=== PATIENT | female | born 1950 | race Caucasian/White ===

== ENCOUNTER 2019-09-13 21:26 | Inpatient (IN) | payer OTHER, BC ==
[~2019-09-13] VITALS: Ht 154.9 cm; Wt 61.2 kg
[~2019-09-13 21:26] MED LIST: ASPIR-LOW81 MG PO; ATENOLOL 25 MG25 M1; ATORVASTATIN CA40 MG PO; AUGMENTIN 875875 MG PO; COZAAR 50 MG TA50 MG PO; EFFIENT10 MG PO; FOLBEE AR TABL1 EACH PO; METHOTREXATE 22.5 M1 PO; PROAIR HFA8.5 GM INH; REMICADE 1100 MG/VIA IV; TOPROL XL25 MG PO; ZOCOR40 MG PO
[2019-09-13 23:00] VITALS: BP 124/556; BP 124/56
[2019-09-14] MEDS ORDERED: SYMBICORT160 MCG/4. INH (01:14)
[2019-09-14] MEDS ORDERED: CELEXA20 MG PO (01:15)
[2019-09-14] MEDS ORDERED: PRAVASTATIN SOD80 MG PO (01:17)
[2019-09-14] MEDS ORDERED: FOLBIC TABLET1 TAB PO (01:18)
[2019-09-14] MEDS ORDERED: FOLBEE TABLET1 EACH PO (01:21)
[2019-09-14] MEDS ORDERED: RESTORIL30 MG PO (01:23)
[2019-09-14] MEDS ORDERED: SINGULAIR 10 MG10 MG PO (01:23)
[2019-09-14] MEDS ORDERED: NORCO 5-325 TA1 EAC1 PO (01:25)
[2019-09-14] MEDS ORDERED: FLONASE 0.05%50 MCG NASAL (01:27)
[2019-09-14] MEDS ORDERED: CLARITIN10 M3 PO (01:28)
[2019-09-14 05:35] VITALS: BP 137/67
[2019-09-14 06:06] LABS: HEMATOCRIT 36.3 % (37.0-47.0); HEMOGLOBIN 12.2 gm/dL (12.0-15.0); MCH 33.8 pg (26.0-34.0); MCHC 33.7 g/dL (28.0-37.0); MCV 100.5 fL (80.0-100.0); RBC 3.62 mil/uL (4.20-5.00); RDW 14.3 % (10.5-14.5)
[2019-09-14 06:27] LABS: CALCIUM 8.8 mg/dL (8.5-10.1); CREATININE 0.9 mg/dL (0.6-1.0); MAGNESIUM 1.8 mg/dL (1.8-2.4); TROPONIN-I 0.1 ng/mL (<0.06)
[2019-09-14 06:44] LABS: POTASSIUM 2.8 mmol/L (3.5-5.1)
--- NOTE | 2019-09-14 08:55 | NUR ---
ASSUME CARE 2300. PT/VITALS STABLE. DENIES ANY PAIN. TOLERATES ACTIVITY WLL. UP TO BSC STB ASSIST. ASSESSMENT CHARTED. PROGRESSING WELL WITH POC. FAMILY IN WITH PATIENT. AV PACED ON MONITOR. PLAN IS TO CONTINUE TO DIURESE PATIENT. WILL CONTINUE TO MONITOR
[2019-09-14 09:14] LABS: CHOLESTEROL 115 mg/dL (<200); HDL CHOLESTEROL 29 mg/dL (>40); LDL CHOLESTEROL 70 mg/dL (<100); TRIGLYCERIDE 82 mg/dL (<150); VLDL 16 mg/dL (<40)
[2019-09-14 11:25] VITALS: BP 122/54
[2019-09-14 12:34] VITALS: BP 132/69
[2019-09-14 13:43] LABS: BE(vivo) 5.3 mmol/L (-2 to +3); HCO3 27.6 mmol/L (22.0-26.0); PCO2 32.9 mmHg (35.0-45.0); PO2 83.3 mmHg (80.0-100.0); pH 7.541 (7.360-7.450); sO2 97.3 % (92.0-98.0)
[2019-09-14 16:20] VITALS: BP 106/58
[2019-09-14 17:05] LABS: URINE BILIRUBIN NEGATIVE (Negative); URINE BLOOD NEGATIVE (Negative); URINE CLARITY CLEAR; URINE COLOR YELLOW; URINE GLUCOSE-RANDOM* NEGATIVE (Negative); URINE KETONES NEGATIVE (Negative); URINE LEUKOCYTES-REFLEX NEGATIVE (Negative); URINE NITRITE-REFLEX NEGATIVE (Negative); URINE PROTEIN (DIPSTICK) NEGATIVE (Negative); URINE SPECIFIC GRAVITY <= 1.005 (1.005-1.035); URINE UROBILINOGEN 0.2 E.U./dl (0.2-1.0)
--- NOTE | 2019-09-14 19:13 | NUR ---
ASSUMED CARE AT 945, ALERT AND ORIENTED X4, VSS AND AFEBRILE.AV PACED ON THE MONITOR. PATIENT STATED SEVERLA TIMES THAT SHE DOESN'T FEEL AND NEEDED TO REST. IV ABX GIVEN PRECRIPED, AND SLEPT ON AND OFF THROUGH OUT THE DAY. K+ REPLACED PER PROTOCOL AND WILL CONTINUE WITH POC.
[2019-09-14 20:54] VITALS: BP 119/49
[2019-09-15 04:45] VITALS: BP 134/66
--- NOTE | 2019-09-15 06:45 | NUR ---
1900, PT ALERT AND ORIENTED. VITALS STABLE. DENIES CHEST PAIN. VOICES CONCERNS ABOUT AM TESTS AND DESIRE TO GET BETTER. FAMILY (DAUGHTER) AT BEDSIDE. NPO SINCE MIDNIGHT. ASSESSMENTS DOCUMNETED. WILL CONTINUE WITH CURRENT POC.
--- NOTE | 2019-09-15 07:39 | HC ---
[facility] [place] [address] CONSULTATION Name: JIMENA MOROCHO Room #: 211-P [facility] IN .R.#: [id number] Admission: 09/13/19 Attend Phys: Miguelangel Kinnye MD Discharge: Date of : 48 Report #: [id number] THIS REPORT FOR: //name// CC: JAKE physician/PCP Miguelangel Kinney DATE OF SERVICE: 09/14/2019 CARDIOLOGY CONSULTATION INDICATION: Dyspnea. HISTORY OF PRESENT ILLNESS: This is a 69-year-old female with a history of CAD, [place], COPD, psoriasis, permanent pacemaker, hypercholesterolemia, presenting with dyspnea. For the past week or so, she has been experiencing intermittent dyspnea. She was admitted to [facility] for 2 days for pneumonia. She was discharged yesterday morning. At home, she developed recurrent dyspnea that progressed throughout the day. She was admitted to [facility] for further evaluation. She denies any episodes of nausea, cough or diarrhea. She apparently has a history of COPD, but has not required home oxygen. PAST MEDICAL HISTORY: [place] in 2013 with stent placement. Permanent pacemaker placed in 2013. Follows with Dr. Baeza. Apparent history of COPD. Hypercholesterolemia. ALLERGIES: METOPROLOL, BUPROPION. MEDICATIONS: At home include Remicade, methotrexate, aspirin once a day, Pravachol 80 mg daily, Singulair, Restoril. SOCIAL HISTORY: Former smoker. FAMILY HISTORY: Negative for premature CAD. REVIEW OF SYSTEMS: A full 10-point review of systems performed. Only the pertinent positives and negatives are described in the HPI. PHYSICAL EXAMINATION: VITAL SIGNS: Blood pressure is 130/60, heart rate is 80 beats per minute. GENERAL APPEARANCE: This is a thin female in no acute distress. HEENT: Normocephalic, atraumatic. Oral mucosa moist. NECK: Supple. LUNGS: Diminished breath sounds diffusely. CARDIAC: Regular rate and rhythm, S1, S2 positive. ABDOMEN: Soft, nontender. [facility] [address] [place] [address] CONSULTATION Name: JIMENA MOROCHO Room #: [facility] IN ..#: [id number] Admission: 09/13/19 Attend Phys: Miguelangel Kinney MD Discharge: Date of : 48 Report #: [id number] EXTREMITIES: No cyanosis, trace edema. ECG reveals sinus rhythm, APCs, nonspecific ST segment abnormality. LABORATORY VALUES: White count is 15.0, hemoglobin is 12.2, potassium is 2.8, creatinine is 0.9, troponin is 0.1. ASSESSMENT AND PLAN: 1. Respiratory failure, rule out chronic obstructive pulmonary disease exacerbation. Treat with antibiotics and check cultures. Consider pulmonary evaluation. 2. Congestive heart failure?, unclear if this is contributing to her dyspnea. Would hold Lasix at this time. She will need an echocardiogram. 3. Coronary artery disease/myocardial infarction/percutaneous coronary intervention, minimal troponin elevation. May be related to oxygen supply/demand mismatch. She reports no recent episodes of angina. Continue on aspirin therapy. 4. Hypercholesterolemia, continue with statin therapy. <ELECTRONICALLY SIGNED> By: Jose Alfredo Pratt MD 09/15/19 0739 1111 1130 Jose Alfredo Pratt MD /nt
[2019-09-15 08:00] VITALS: BP 132/58
[2019-09-15 09:15] LABS: CALCIUM 9.2 mg/dL (8.5-10.1); POTASSIUM 3.9 mmol/L (3.5-5.1)
--- NOTE | 2019-09-15 10:24 | 2DMMODE ---
[facility] [place] [address] 2 D/M-MODE ECHOCARDIOGRAM Name: JIMENA MOROCHO Room #: 211-P [facility] IN M.R.#: [id number] Admission: 09/13/19 Attend Phys: Miguelangel Kinney, Discharge: Date of : 48 Report #: [id number] THIS REPORT FOR: //name// APPROVED REPORT Study performed: 09/15/2019 09:44:50 EXAM: Comprehensive 2D, Doppler, and color-flow Echocardiogram Patient Location: Echo lab Room #: [facility] Status: routine BSA: 1.56 HR: 85 bpm BP: 134/66 mmHg Rhythm: Irregular Other Information Study Quality: Fair Technically limited study due to COPD. Indications Fluid overload. Hx: PPM, CAD, stent, HTN. 2D Dimensions RVDd: 30.48 mm IVSd: 8.01 (7-11mm) LVOT Diam: 18.20 (18-24mm) LVDd: 36.48 mm PWd: 7.76 (7-11mm) Ascending Ao: 27.19 (22-36mm) LVDs: 27.95 (25-40mm) Aortic Root: 24.41 mm Volumes Left Atrial Volume (Systole) Single Plane 4CH: 17.94 mL Single Plane 2CH: 12.56 mL LA ESV Index: 12.00 mL/m2 Aortic Valve AoV Peak Tru.: 1.15 m/s AO Peak Gr.: 5.32 mmHg LVOT Max P.34 mmHg LVOT Max V: 1.04 m/s MICHELE Vmax: 2.35 cm2 Mitral Valve E/A Ratio: 0.7 [facility] [email or web address] [address] 2 D/M-MODE ECHOCARDIOGRAM Name: BAILEEJIMENA E Room #: 211-P [facility] [id number] Admission: 09/13/19 Attend Phys: Miguelangel Kinney, Discharge: Date of : 48 Report #: [id number] MV Decel. Time: 283.62 ms MV E Max Tru.: 0.58 m/s MV A Tru.: 0.79 m/s MV PHT: 82.25 ms IVRT: 103.81 ms Pulmonary Valve PV Peak Tru.: 1.03 m/s PV Peak Gr.: 4.20 mmHg Tricuspid Valve TR Peak Tru.: 2.37 m/s RAP Estimate: 5.00 mmHg TR Peak Gr.: 22.48 mmHg PA Pressure: 27.00 mmHg Left Ventricle The left ventricle is normal size. Regional wall motion is normal. There is normal left ventricular wall thickness. Left ventricular systolic function is normal. LVEF is 55-60%. Mild diastolic dysfunction is present (impaired relaxation pattern). Right Ventricle The right ventricle is normal size. The right ventricular systolic function is normal. Atria The left atrium size is normal. The right atrium size is normal. Aortic Valve The aortic valve leaflets are poorly viisualized. No aortic regurgitation is present. There is no aortic valvular stenosis. Mitral Valve The antrior leaflet is moderately calcified. Mild to moderate mitral regurgitation. Tricuspid Valve The tricuspid valve is normal in structure. Trace to mild tricuspid regurgitation. Estimted PAP is 25-30mmHg. Pulmonic Valve Pulmonic valve is poorly visualized. Trace pulmonic regurgitation. Great Vessels [facility] [place] [address] [place] [address] 2 D/M-MODE ECHOCARDIOGRAM Name: JIMENA MOROCHO Candida Room #: 211-P ADM IN M.R.#: [id number] Admission: 09/13/19 Attend Phys: Miguelangel Kinney, Discharge: Date of : 48 Report #: [id number] The aortic root is normal in size. The ascending aorta is normal in size. IVC is normal in size and collapses >50% with inspiration. Pericardium There is no pericardial effusion. <Conclusion> Technically limited study Left ventricular systolic function is normal. Regional wall motion is normal. LVEF is 55-60%. Mild diastolic dysfunction Pacing wires in the right heart The aortic valve leaflets are poorly viisualized. No aortic regurgitation or stenosis. The antrior mitral leaflet is moderately calcified. Mild to moderate mitral regurgitation. Trace to mild tricuspid regurgitation. Estimted pulmonary artery pressure of 25-30mmHg. There is no pericardial effusion. <ELECTRONICALLY SIGNED> By: Lul Paula MD, FACC 09/15/19 [phone] 1024 Lul Paula MD, FAC /INF
[2019-09-15 12:00] VITALS: BP 101/58
--- NOTE | 2019-09-15 13:20 | NUR ---
Chart reviewed and case discussed with the care team. Manager Regulatory visited with the pt and her dtr Deb at bedside. The pt is a&ox4 and indicates that she lives with her spouse and was indep and driving prior to admission. She denies any dc needs or concerns at this time. No dme or hh history. Cm role introduced. Therapy evals pending. Will follow along should dc needs arise.
[2019-09-15 16:00] VITALS: BP 113/58
--- NOTE | 2019-09-15 16:52 | NUR ---
PT CARE ASSUMED APPROX 0700. ASSESSMENTS CHARTED. DENIES PAIN AND SOA. VSS. UP WITH SBA, STEADY. PT TOLERATING POC. DENIES QUESTIONS OR CONCERNS REGARDING POC. FAMILY AT BEDSIDE ALL SHIFT. SHE ALSO DENIES QUESTIONS OR CONCERNS. NO DISTRESS NOTED.
[2019-09-15 19:19] VITALS: BP 119/53
[2019-09-16 03:35] VITALS: BP 142/59
[2019-09-16 04:55] LABS: BASOPHILS 0.8 % (0.0-2.0); HEMATOCRIT 36.9 % (37.0-47.0); HEMOGLOBIN 12.2 gm/dL (12.0-15.0); LYMPHOCYTES 37.2 % (24.0-44.0); MCH 33.9 pg (26.0-34.0); MCV 102.6 fL (80.0-100.0); MONOCYTES 1.9 % (1.0-8.0); PLATELET COUNT 167 thou/uL (150-400); POLYS 60.1 % (36.0-66.0); RBC 3.59 mil/uL (4.20-5.00); RDW 14.7 % (10.5-14.5); WBC 16.7 thou/uL (4.0-11.0)
--- NOTE | 2019-09-16 05:03 | NUR ---
PT ALERT AND ORIENTED. FAMILY AT BEDSIDE. VSS. DENIES SOB OR CHEST PAIN. PT WAS NPO, FOR ABD US THIS MORNING. CONTINUES WITH ABX. NO FURTHER CONCERNS.
[2019-09-16 05:16] LABS: CALCIUM 8.7 mg/dL (8.5-10.1); CREATININE 0.9 mg/dL (0.6-1.0); MAGNESIUM 2.2 mg/dL (1.8-2.4); POTASSIUM 3.6 mmol/L (3.5-5.1)
[2019-09-16 07:30] VITALS: BP 126/72
[2019-09-16 10:30] VITALS: BP 126/56
--- NOTE | 2019-09-16 12:51 | TEE ---
[facility] [address] [place] [address] TRANSESOPHAGEAL ECHOCARDIOGRAM Name: ARIADNAGILJIMENA Candida Room #: 211-P [facility] IN [facility]#: [id number] Admission: 09/13/19 Attend Phys: Miguelangel Kinney, Discharge: Date of : 48 Report #: [id number] THIS REPORT FOR: //name// APPROVED REPORT Study performed: 09/16/2019 11:57:13 EXAM: Comprehensive 2D, Doppler, and color-flow Echocardiogram Patient Location: laboratory phlebotomist holding area Room #: 9 Status: routine BSA: 1.56 HR: 85 bpm BP: 124/77 mmHg Rhythm: NSR Other Information Study Quality: Excellent Indications Endocarditis Echo Enhancing Agent Indication: Rule out Shunt Agent(s) / Amount(s) Used: Agitated Saline 7 cc Procedure After obtaining informed consent, patient underwent transesophageal echo in the [employer]. Type of Sedation : Conscious Sedation Sedation was administered by Nurse. Sedation was achieved intravenously with: Versed (2.5 mg) Fentanyl (125 mcg) Transesophageal probe was inserted and advanced into esophagus without difficulty by Lul Paula MD. Echo enhancement indication: R/O Septal defect. The CHERYL was performed without complications. Throughout the procedure, the blood pressure, pulse oximetry, cardiac rhythm, and rate were monitored. The patient tolerated the procedure without adverse effects. Recovery from conscious sedation was uneventful and vital signs were stable. Left Ventricle [facility] [address] [place] [address] TRANSESOPHAGEAL ECHOCARDIOGRAM Name: JIMENA MOROCHO Room #: 211-P [facility] IN ..#: [id number] Admission: 09/13/19 Attend Phys: Miguelangel Kinney, Discharge: Date of : 48 Report #: [id number] The left ventricle is normal size. There is normal LV segmental wall motion. There is normal left ventricular wall thickness. The left ventricular systolic function is normal. The left ventricular ejection fraction is within the normal range. LVEF is 55-60%. Right Ventricle The right ventricle is normal size. The right ventricular systolic function is normal. Atria The left atrium size is normal. No thrombus is visualized in the left atrium or appendage. No shunting by contrast bubble injection The right atrium size is normal. Aortic Valve The aortic valve is normal in structure. No aortic regurgitation is present. There is no aortic valvular stenosis. Mitral Valve Oval, irregular bordered and mildly calcified mass adherent to the anterior leaflet of the mitral valve (0.9 x .5cm) consistent with vegetation. Moderate, eccentric mitral regurgitation. No evidence of mitral valve stenosis. Tricuspid Valve The tricuspid valve is normal in structure. Trace tricuspid regurgitation. Pulmonic Valve The pulmonary valve is normal in structure. There is no pulmonic valvular regurgitation. Great Vessels The aortic root is normal in size. IVC is normal in size and collapses >50% with inspiration. Pericardium There is no pericardial effusion. Critical Notification Critical Value: Yes Physician Notified <Conclusion> The left ventricular systolic function is normal. There is normal LV segmental wall motion. [facility] [address] [place] [address] TRANSESOPHAGEAL ECHOCARDIOGRAM Name: JIMENA MOROCHO Candida Room #: 211-P [facility]#: [id number] Admission: 09/13/19 Attend Phys: Miguelangel Kinney, Discharge: Date of : 48 Report #: [id number] LVEF is 55-60%. The left atrium size is normal. No thrombus is visualized in the left atrium or appendage. No shunting by contrast bubble injection The aortic valve is normal in structure. No aortic regurgitation or stenosis Oval, irregular bordered and mildly calcified mass adherent to the anterior leaflet of the mitral valve (0.9 x .5cm) consistent with vegetation. Moderate, eccentric mitral regurgitation. There is no pericardial effusion. <ELECTRONICALLY SIGNED> By: Lul Paula MD, FACC 09/16/19 1251 1251 125 Lul Paula MD, FACC /INF
[2019-09-16 13:50] VITALS: BP 116/67
[2019-09-16 15:40] VITALS: BP 146/64
--- NOTE | 2019-09-16 19:19 | HC ---
[facility] [address] [place] [address] CONSULTATION Name: JIMENA MOROCHO Room #: 211-P ADM IN M.R.#: [id number] Admission: 09/13/19 Attend Phys: Miguelangel Kinney MD Discharge: Date of : 48 Report #: [id number] THIS REPORT FOR: //name// CC: JAKE physician/PCP Miguelangel Kinney DATE OF SERVICE: 09/15/2019 INFECTIOUS DISEASE CONSULTATION REASON FOR CONSULTATION: I was asked to evaluate concerning fever and bacteremia. HISTORY OF PRESENT ILLNESS: The patient is 69 years old with underlying history of psoriasis on Remicade and methotrexate longstanding. She has a history of coronary artery disease and a permanent pacemaker following an RI several years ago. Over the last 10 days, she has had episodes of profound fatigue, intermittent chills, sweats, shortness of breath. She has had temperature over 101.6 degrees. She has been in and out of the emergency rooms at [facility] and [facility]. She has had fairly extensive workup. Due to failure to improve at [facility] Room, she was transferred to [facility] for further evaluation. The patient reports some chest heaviness without chest pain. She has had minimal cough with no sputum production. No sinus congestion, postnasal drip. No oral lesions. Denies any headache or neck pain. There has been no pleuritic chest pain. She has had no abdominal pain, back or flank pain. She has had intermittent nausea and 1 episode of emesis several days ago. There has been no diarrhea. No dysuria or frequency. She has had occasional hematuria reported. No flare up of her psoriasis. No arthritis symptoms. No psychiatric issues noted. No bleeding issues otherwise. Full 10-point review of system was negative other than what has been described above. Further workup at [facility] did note negative. Chest x-ray and CT scan of abdomen and pelvis showed mild splenomegaly. Since transferred to [facility], she has had a CT scan of the chest, which showed no acute infiltrates and longstanding emphysema. Echocardiogram was performed which was a limited exam showing no valvular abnormalities. Blood cultures were done on 09/10/2019, which showed Enterococcus faecalis. Sensitivities were not available during this evaluation. I do not have culture results from [facility]. Her urinalysis was unremarkable. Her white count was 14,000-15,000, do not have any other inflammatory markers. Her creatinine was normal. Liver function tests were unremarkable. [address] [address] CONSULTATION Name: JIMENA MOROCHO Room #: 211-P [facility]#: [id number] Admission: 09/13/19 Attend Phys: Miguelangel Kinney MD Discharge: Date of : 48 Report #: [id number] ALLERGIES: NIZATIDINE, METOPROLOL, BUPROPION. MEDICATIONS: Augmentin, Remicade, methotrexate, multivitamin, albuterol, aspirin, Symbicort, Celexa, pravastatin, Singulair, Restoril, [place], Flonase, Claritin, now on vancomycin and Zosyn. PAST MEDICAL HISTORY: Hysterectomy, cholecystectomy, hyperlipidemia, COPD, psoriasis, coronary artery disease, status post RI, catheterization, stenting and permanent pacemaker in 2014, hypertension, past smoker. FAMILY HISTORY: Noncontributory. SOCIAL HISTORY: Past smoker, no significant alcohol intake. No HIV risk factors. REVIEW OF SYSTEMS: A 10-point review of system was negative other than what is described above. PHYSICAL EXAMINATION: GENERAL: Afebrile and hemodynamically stable. The patient was alert and cooperative. She was in no acute distress. She was conversant and normal mental status. VITAL SIGNS: Temperature was 36.4, pulse 73, respirations 20, blood pressure 119/53. SKIN: Without rash or decubitus. No palpable adenopathy. HEENT: Eyes, without scleral icterus, no petechial hemorrhages. Mouth with no lesions noted. NECK: Supple. No thyromegaly or mass. CHEST: Clear. HEART: Regular, did not appreciate any murmur, gallop, or rub. Permanent pacemaker in the left chest was without tenderness or erythema to the pocket. ABDOMEN: Soft, nontender, no hepatosplenomegaly. Spleen was palpable on deep inspiration. BACK: Nontender. There is no CVA tenderness. GENITAL RECTAL: Not performed. EXTREMITIES: Without clubbing, cyanosis or edema. There are no Osler nodes or Jan[place]ay lesions noted. Cranial nerves intact. Strength in upper and lower extremities was within normal limits and symmetric. Sensation in the upper and lower extremities symmetric and within normal limits. Mood was normal. LABORATORY STUDIES: Urinalysis unremarkable. Sodium 143, potassium 3.9, bicarbonate 29, creatinine 1. TSH 1. ABG on 2 liters of oxygen per nasal cannula. She had a pO2 of 83, pCO2 of 32, pH 7.5. Hemoglobin 12, white count 15, platelet count 174,000. IMPRESSION: A 69-year-old with enterococcal bacteremia, progressive weakness on [address] [place] [address] CONSULTATION Name: JIMENA MOROCHO Room #: 211-P ADM IN .R.#: [id number] Admission: 09/13/19 Attend Phys: Miguelangel Kinney MD Discharge: Date of : 48 Report #: [id number] immunosuppression with Remicade and methotrexate for psoriasis. Coronary artery disease and atrial fibrillation, permanent pacemaker. Chronic obstructive pulmonary disease. I am suspecting endocarditis due to Enterococcus faecalis. This will need to be further evaluated by transesophageal echocardiogram. She has had a CT scan of the abdomen, which showed no evidence of intraabdominal abscess. There was no hepatic abscess. No evidence of diverticulitis. RECOMMENDATIONS: We will continue antibiotic coverage for Enterococcus. Obtain sedimentation rate, CRP. Repeat her blood cultures. Transesophageal echocardiogram. We will hold further immunosuppression, obtain outside microbiology reports. May need further GI evaluation down the road. <ELECTRONICALLY SIGNED> By: Michel Kim MD 09/16/19 1919 [id number] 0110 Michel Kim MD /nt
--- NOTE | 2019-09-16 19:37 | NUR ---
ASSUMED CARE OF PT AT APPROX 0700. PT IS ALERT AND ORIENTED X4. MONITORED ON TELE AND ABLE TO MAINTAIN 02 SAT >90 ON RA. DENIES PAIN AND SOA. PT NPO FOR SCHEDULED CHERYL CARDIOLOGY PROCEDURE APPROX 11AM PT WAS TAKEN DOWN AND THEN RETURNED APPROX 1430. PT TOLERATED TEST WELL AND WAS VERY HAPPY THAT SHE FINALLY HAS ANSWERS. 24 HOUR URINE COLLECTION WAS ORDERED YESTERDAY, BUT WAS NOT INITIATED. WAS UNABLE TO INITATE TODAY WITH PT BEING OFF OF THE UNIT. ASSESSMENT CHARTED. DAUGHTER AT BEDSIDE AT ALL TIMES. PT AND DAUGHTER ARE UPDATED ON POC AND DENY ANY FURTHER QUESTIONS CURRENTLY. MAKING PROGRESS TOWARDS POC GOALS.
[2019-09-16 20:19] VITALS: BP 131/49
[2019-09-17 02:16] LABS: ABSOLUTE NEUTROPHILS 8.5 thou/uL (1.4-8.2); BASOPHILS 1.3 % (0.0-2.0); HEMATOCRIT 36.9 % (37.0-47.0); HEMOGLOBIN 12.2 gm/dL (12.0-15.0); LYMPHOCYTES 31.7 % (24.0-44.0); MCH 33.6 pg (26.0-34.0); MCHC 33.2 g/dL (28.0-37.0); MCV 101.1 fL (80.0-100.0); MONOCYTES 2.3 % (1.0-8.0); PLATELET COUNT 229 thou/uL (150-400); POLYS 64.7 % (36.0-66.0); RBC 3.65 mil/uL (4.20-5.00); RDW 14.3 % (10.5-14.5); WBC 13.2 thou/uL (4.0-11.0)
[2019-09-17 05:14] VITALS: BP 144/79
[2019-09-17 07:24] VITALS: BP 151/71
--- NOTE | 2019-09-17 10:37 | NUR ---
AAOX4. CALM, COOPERATIVE. ADULT DTR AT BEDSIDE. 24-HOUR URINE COLLECTION IN PROCESS. A-PACED PER TELE. WILL CONTINUE TO FOLLOW CLOSELY.
[2019-09-17 11:16] VITALS: BP 140/67
[2019-09-17 16:20] VITALS: BP 131/59
[2019-09-17 20:56] VITALS: BP 152/57
[2019-09-18 04:41] LABS: HEMATOCRIT 35.8 % (37.0-47.0); MCH 33.7 pg (26.0-34.0); MCHC 33.6 g/dL (28.0-37.0); MCV 100.1 fL (80.0-100.0); RBC 3.58 mil/uL (4.20-5.00); RDW 14.5 % (10.5-14.5); WBC 12.6 thou/uL (4.0-11.0)
--- NOTE | 2019-09-18 04:52 | NUR ---
ASSUMED PT CARE AT 1900. PT IS ALERT AND ORIENTED WITH NO SIGN OF DISTRESS NOTED IN PT. DAUGHTER AT BEDSIDE. PT IS STABLE. ASSESSMENT COMPLETED AND DOCUMENTED. SCHEDULED MEDS ADMINISTERED TO PT. TOLERATED PO INTAKE, PT DID NOT HAVE SUCCESSFUL INTAKE OF NYSTATIN SWISH AND SWALLOW ORDERED. CONTINUE TO MONITOR PT. DENIES ANY FURTHER NEEDS AT THIS TIME.
[2019-09-18 05:40] VITALS: BP 159/98
[2019-09-18 08:50] VITALS: BP 146/51
--- NOTE | 2019-09-18 11:41 | NUR ---
ASSUMED CARE AT 0700, SHIFT ASSESMENT DONE, MEDS GIVEN, VSS. DENIES PAIN, NAUSEA, VOMITING. UP WITH STANDBY ASSIST. HAS A PACEMAKER, ATRIAL PACED AT TIMES, ROOM AIR. IS SCHEDULED FOR A COLONOSCPY FOR TOMORROW. RECEIVING IV ANTIBIOTICS. WILL CONTINUE TO ASSESS AND ASSIST WITH ADLs NEEDED.
[2019-09-18 17:00] VITALS: BP 167/70
--- NOTE | 2019-09-18 19:16 | NUR ---
ASSUMED CARE OF PATIENT AT 1500 FROM LINDY RHODES. ASSESSMENT COMPLETED. PATIENT'S DAUGHTER AT THE BEDSIDE. PT TAKING THROAT LOZENGES FOR SORE THROAT WITH MINIMAL RELIEF. GOLYTELY STARTED AT 1700 WITH SLOW PROGRESS. PATIENT HAVING BM ALL DAY WHILE ON CLEAR LIQUID DIET. PATIENT TO CONTINUE PREP. COLONOSCOPY AND EGD CONSENT SIGNED. CONTINUE WITH POC.
[2019-09-18 19:32] VITALS: BP 158/57
[2019-09-18 22:09] LABS: URINE CREATININE 50.1 mg/dL (Not Estab.)
[2019-09-19 03:11] VITALS: BP 164/63
--- NOTE | 2019-09-19 06:07 | NUR ---
ASSUMED CARE OF PT AT 1900HRS. PT IS AOX4 AND LETS NEEDS BE KNOWN. FALL PRECAUTION IN PLACE. FAMILY IS AT BEDSIDE. ABX TREATMENT CONTINUED. BOWEL PREP COMPLETED AT 0420HRS. PT HAD DEVERAL LOOSE BMS DUE TO BOWL REP. PT DENED NAUSEA OR PAIN. AFTER COMPLETION OF BOWEL PREP, PT WAS ABLE TO SLEEP PART OF THE SHIFT. PT HAD AN ELEVATED BP HIS AM. TEZ LÓPEZ NOTIFIED. NO ORDERS RECEIVED. WILL CONTINUE TO MONITOR.
[2019-09-19 08:00] VITALS: BP 174/90
--- NOTE | 2019-09-19 15:23 | NUR ---
pt returned from EGD at 1pm. daughter at side, results discussed with daughter and pt, both verbalized some understanding and need some reinforcement. pt's gag reflex positive, pt swallowed tablets, no signs or symptoms of choking, will monitor
[2019-09-19 16:00] VITALS: BP 146/61
[2019-09-19 20:28] VITALS: BP 114/41
[2019-09-20 04:20] VITALS: BP 182/77
--- NOTE | 2019-09-20 04:30 | NUR ---
transfer Report from Aleyda ISRAEL from [facility]. Pt transferring to 461 upgraded to med/surg status. vss oriented to room call light and poc. pt a/o x4 denies pain. Plan to have picc placed and dc home with iv antibiotics for lng term care of endocarditis.
[2019-09-20 05:51] LABS: HEMATOCRIT 36.2 % (37.0-47.0); HEMOGLOBIN 12.1 gm/dL (12.0-15.0); MCH 33.5 pg (26.0-34.0); MCHC 33.5 g/dL (28.0-37.0); MCV 100.1 fL (80.0-100.0); RBC 3.61 mil/uL (4.20-5.00); RDW 14.3 % (10.5-14.5); WBC 13.3 thou/uL (4.0-11.0)
[2019-09-20 06:18] LABS: CALCIUM 8.4 mg/dL (8.5-10.1); CREATININE 0.8 mg/dL (0.6-1.0); POTASSIUM 3.1 mmol/L (3.5-5.1)
--- NOTE | 2019-09-20 07:48 | NUR ---
PT WENT TO BATHROOM AND PASSED 3 SMALL RED BLOOD CLOTS DENIES PAIN NO STOOL.
[2019-09-20 07:52] VITALS: BP 155/73
--- NOTE | 2019-09-20 10:28 | NUR ---
Nutrition: pt admitted with SOB, mitral valve endocarditis. Seen for LOS. Eating fairly well, 50-100% of meals and reports usual appetite. No recent weight changes. Avoids salt at home. Currently on lasix/prednisone. S/P EGD/colonoscopy 09/19. Colon polyp removal and esophageal ulcer noted. PPI started. K-3.1, on electrolyte replacement. To have PICC placed for IV antibiotics at home. No nutrition interventions at this time. Low risk.
[2019-09-20 14:10] VITALS: BP 155/73
[2019-09-20 15:28] VITALS: BP 147/50
--- NOTE | 2019-09-20 16:27 | NUR ---
CARE TEAM INDICATED THAT PT MAY BE MEDICALLY STABLE TO DC HOME THIS DAY AFTER WE GET FINAL ABX RECS FROM ID. SHERRY SENT REFERRAL TO [facility] FAX . AWAITING BENEFITS. PT DOESN'T YET HAVE PICC PLACED. CHECKING WITH [facility] TO SEE IF THEY CAN ACCEPT PT FOR HH SERVICES.
--- NOTE | 2019-09-20 16:36 | NUR ---
Assumed pt care at 7am.Pt in and out of bed to br with sba.Assessment completed.vss.Pt has dark blood stool this am and called this rn to observe. G.i site operations manager notified and wanted pt stool be monitor.Dr Garsia here and order noted. Pt tolerated meds and diet.Dtr at bs most of the times today.Family cart provided for pt's drt per her request.No verbal c/o but pt wish she dc home today.Will continue to monitor.
[2019-09-20 16:40] VITALS: BP 155/73
[2019-09-20 19:26] VITALS: BP 134/60
--- NOTE | 2019-09-21 01:54 | NUR ---
PT IS A/O X4.PT IS UP WITH STANDBY .PT DAUGHTER SPENT NIGHT WITH PT.Ana Laura FLOYD WAS HERE LAST NIGHT TO SEE THE PT.PT WILL NEED A PICC LINE FOR CONTINUITY OF IV ANTIBIOTICS.WILL CONTINUE TO MONITOR POC
[2019-09-21 06:25] LABS: CALCIUM 8.3 mg/dL (8.5-10.1); CREATININE 0.9 mg/dL (0.6-1.0)
[2019-09-21 06:46] LABS: POTASSIUM 2.4 mmol/L (3.5-5.1)
--- NOTE | 2019-09-21 07:13 | NUR ---
LAB CALLED AT 645 FOR CRITICAL LAB OF POTASSIUM OF 2.4.YUMIKO REAGAN INFORMED AND THE PROTOCOL FOR POTASSIUM REPLACEMENT ORDERED.
[2019-09-21 08:01] VITALS: BP 135/48
[2019-09-21 08:35] VITALS: BP 144/54
[2019-09-21 09:39] LABS: HEMATOCRIT 34.9 % (37.0-47.0); HEMOGLOBIN 11.5 gm/dL (12.0-15.0); MCH 33.4 pg (26.0-34.0); MCHC 33.1 g/dL (28.0-37.0); MCV 100.9 fL (80.0-100.0); RBC 3.46 mil/uL (4.20-5.00)
[2019-09-21 09:45] VITALS: BP 155/73
--- NOTE | 2019-09-21 11:09 | NUR ---
VAACULAR ACCESS NURSE NOTIFIED TO PLACE A PICC FOR A PATIENT DISCHARGING WITH HOME IV ANTIBIOTICS. ORDER AND CONSENT NOTED. THE PROCDEURE WELL BENIFITS AND RISKS WERE DISCUSSED AND SHE VERBALIZED UNDERSTANDING. THE RIGHT UPPER ARM BASILIC WAS WIDLEY PATENT. A #4F SINGLE LUMEN POWER PICC WAS PLACED PER HOSPITAL POLICY AFTER A BEDSIDE TIMOUT WAS COMPLETED. LINE TRIMMED TO 40CM AND ADVANCED WITHOUT DIFFICULTY. A STAT CHEST XRAY CONFIRMED LINE IS IN CORRECT POSITION IN THE SVC. JOSE ISRAEL NOTIFIED AND LINE RELEASED FOR USE
--- NOTE | 2019-09-21 14:26 | NUR ---
IT IS ANTIPATED THAT PT WILL BE MEDICALLY STABLE TO [facility] THIS DAY WITH [facility] P: F: AND [facility] P: F: . PT IS TO HAVE EGD AT 1530 TODAY. FINAL ORDERS WILL NEED TO BE FAXED TO THE NUMBERS LISTED ABOVE. PT WILL BE DISCHARGING TO HER [facility] AT [address] [place], [place] [address]. BOTH COMPANIES HAVE THE CORRECT ADDRESS. NO OTHER CM INTERVENTION INDICATED. CASE CLOSED.
[2019-09-21 15:21] VITALS: BP 122/45
--- NOTE | 2019-09-21 16:07 | PATH ---
[facility] [address] [place] [address] PATHOLOGY RPT PROCEDURE Name: MINE AKHTAR Candida Room #: 461-P ADM IN M.R.#: [id number] Admission: 09/13/19 Date of : 46 Discharge: Report #: [id number] Path Case #: [id number] LCA Accession Number: [id number] . 01 Material submitted: . PART A: esophagus - BIOPSY OF ESOPHAGEAL ULCER PART B: colon - POLYP AT SIGMOID X2. Modifiers: sigmoid . 01 Clinical history: . Enterococcus bacteremia . 02 Diagnosis: A. Squamous mucosa, esophageal ulcer, endoscopic biopsy: - Fragments of fibrinopurulent material, consistent with ulceration (please see comment). - Intact squamous epithelial fragments showing mild active esophagitis. - Negative for intestinal metaplasia or dysplasia. . B. Polyp x2, sigmoid polyp, endoscopic biopsy: - Tubular adenoma identified in both fragments. - Negative for high-grade dysplasia. . (IUV:ursula; 09/21/2019) MBR 09/21/2019 1133 Local . 02 Comment: A GMS fungal special stain is ordered on block A1 and the results of this will be reported in an addendum to follow. 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 02 Electronically signed: . Jenny Luu MD, Pathologist NPI- [id number] . 01 Gross description: . A. The specimen is received in formalin, labeled "Mine Akhtar, biopsy of esophageal ulcer". Received are nine segments of pale gasca soft tissue ranging in size from 0.1 to 0.4 cm in maximum dimensions. The specimen is submitted entirely in cassette A1. . B. The specimen is received in formalin, labeled "Mine Akhtar, polyp at sigmoid x2". Received are two segments of pale gasca soft tissue ranging in size from 0.5 to 0.7 cm in maximum dimensions. The specimen is submitted entirely in cassette B1. ([facility]; 09/20/2019) QAC/QAC 09/20/2019 0928 [facility] . [address] [place] [address] PATHOLOGY RPT PROCEDURE Name: MINE AKHTAR Room #: 461-P ADM IN M.R.#: [id number] Admission: 09/13/19 Date of : 46 Discharge: Report #: [id number] Path Case #: [id number] Pathologist provided ICD-10: K22.10, K20.9, D12.5 . 02 CPT . 069324, [id number] Specimen Comment: A courtesy copy of this report has been sent to [phone] Specimen Comment: [phone] Specimen Comment: Report sent to / DR OLSON Performed at: [address], [place], [place] [id number] MD Dawit Mendoza MD Phone: [phone] Performed at: [address] [id number] MD Jenny Luu MD Phone: [phone]
[2019-09-21 16:38] VITALS: BP 155/73
[2019-09-21 19:52] VITALS: BP 128/60
--- NOTE | 2019-09-21 20:03 | NUR ---
ASSUMED PT CARE AT 7AM.PT IN AND OUT OF BED TO BR WITH SBA.ASSESSMENT COMPLETED.VSS.PT REPORTED BLOODY STOOL X2 AND PICTURE TAKEN AND SHOWN TO GI HEATING ELEMENT BUILDER.SHE SAID DR LOFTON WILL BE ROUNDING LATER THIS EVENING TO SEE PT.DR BROUSSARD NOTIFIED ABOUT PT STATUS AND DC HOME POSTPONED TILL AM.LATER THIS EVENING PT REPORTED ADDITIONAL BLOODY STOOL.HH RN CAME TO INSTRUCT PT ON IV ANTIBIOTIC INFUSION AT HOME.MEDS KEPT IN MED ROOM FRIDGE TILL PT READY FOR DC HOME IN AM. REPORT OFF TO CAMERON ISRAEL.
[2019-09-22 05:45] LABS: HEMOGLOBIN 10.6 gm/dL (12.0-15.0); MCH 34.4 pg (26.0-34.0); MCHC 34.1 g/dL (28.0-37.0); MCV 100.8 fL (80.0-100.0); RBC 3.08 mil/uL (4.20-5.00); WBC 11.1 thou/uL (4.0-11.0)
[2019-09-22 05:59] LABS: CALCIUM 8.2 mg/dL (8.5-10.1); CREATININE 0.7 mg/dL (0.6-1.0)
[2019-09-22 06:28] LABS: POTASSIUM 3.9 mmol/L (3.5-5.1)
--- NOTE | 2019-09-22 06:28 | NUR ---
ASSUMED CARE AROUND 191. AXOX4. NOTED WITH BLOODY STOOL X 1 DURING SHIFT KEPT NPO FOR POSS GI PROCEDURE. NO S/S ACUTE DISTRESS NOTED OR REPORTED AT THIS TIME. WILL CONT TO MONITOR FOR ANY CHANGES IN CONDITION.
[2019-09-22 07:20] VITALS: BP 134/62
--- NOTE | 2019-09-22 13:19 | NUR ---
Received awake on bed. On nothing per orem- pt informed and aware, mouth care rendered and ice chips offered. On room air. Vital signs stable. With single lumen PICC line at R upper arm, dressing C/D/I, intact and flushing well. Falls bundle in place. Able to go to the bathroom and use bedside with standby to minimal assist. With daughter at bedside. Pt had an episode of bloody stool at 7am- Dr Zelaya informed, Dr Hou informed thru answering service, YUMIKO Manzanares informed as well re: bloody episode of stool this AM. Assisted in ADLs. Pt very keen to go home, informed pt we have to wait for Dr's advise re: discharge. Pt seen by YUMIKO Manzanares today, pt for flexi-sigmoidoscopy today, consent signed, 1x tap enema done as ordered, a/w schedule for procedure patient and daughter kept updated.
--- NOTE | 2019-09-22 14:40 | NUR ---
PT WASN'T MEDICALLY STABLE TO DC HOME YESTERDAY EVENING. CARE TEAM REPORTS THAT PT HAD TWO INSTANCES OF BLOODY STOOL AFTER EGD AND COLONOSCOPY YESTERDAY. PT IS TO HAVE A FLEX SIG TODAY. CM NOTIFIED [facility] AND [facility]. CM TO INFORM PROVIDERS ONCE PT IS MEDICALLY STABLE TO DC. CM TO FOLLOW INDICATED WITH DC PLANNING.
[2019-09-22 16:27] VITALS: BP 135/59
--- NOTE | 2019-09-22 16:41 | NUR ---
PT HAD FLEX SIG.. AWAITING CARE TEAM CLEARENCE FOR DISHCARGE. SHOULD PT BE MEDICALLY STABLE TO [facility] HOME THIS DAY. FINAL ORDERS WILL NEED TO BE FAXED TO THE NUMBERS LISTED BELOW. PT WILL BE DISCHARGING TO HER [facility] AT [address] [place] [address] [address] [place], [place] [address]. BOTH COMPANIES HAVE THE CORRECT ADDRESS. [facility] P: F: [facility] P: F: . SHOLD PT NOT BE MEDICALLY STABLE CM TO FOLLOW INDICATED WITH DC PLANNING.
[2019-09-22] MEDS ORDERED: AMPICILLIN SODIU2 GM IV (17:01)
[2019-09-22] MEDS ORDERED: ROCEPHIN 11 GM/1001 IV (17:01)
--- NOTE | 2019-09-30 10:13 | HC ---
[facility] [address] [place] [address] CONSULTATION Name: ARIADNAGILJIMENA Tirado Room #: 454-P [facility] IN ..#: [id number] Admission: 09/13/19 Attend Phys: Miguelangel Kinney MD Discharge: 09/22/19 Date of : 46 Report #: [id number] THIS REPORT FOR: //name// CC: [facility] physician/PCP Miguelangel Kinney REASON FOR CONSULTATION: The patient is a 69-year-old woman with evidence of Enterococcus endocarditis. HISTORY OF PRESENT ILLNESS: This 69-year-old woman has a history of heart disease with previous myocardial infarction in 2013. A stent was placed in the LAD at that time. She also had a permanent pacemaker placed as well. She has been in her usual state of health until recently when in the past week or so, she has developed constitutional symptoms of feeling hot with chills and just feeling poorly in general. She was initially admitted to [facility] and had some evaluation. She was told she had an infection but the etiology is not entirely clear. She was placed on Augmentin for infection, possibly pneumonia, but she never took the antibiotic as within less than a day she ended up in the ER in [place]. She was in the hospital with severe shortness of breath. She has a history of COPD and heart disease and subsequently was sent to [facility]. Here, she had evaluations including a negative CTA for pulmonary embolism. She had a white count of 16.7, hemoglobin 12.2 and platelet count 167,000. Her pH was 7.54, pCO2 of 32, pO2 of 83. Electrolytes were unremarkable. Lactic acid was 0.8. Subsequently, blood cultures were positive for Enterococcus faecalis. Gastrointestinal evaluation was requested. In addition, she reports she has been having some regurgitation symptoms in particular at night over the past 3-4 months. In the past, she had occasional "gas" in her chest, but she has not had ronna regurgitation. She was recently given Nexium but really has not started that medication. There has been no dysphagia. She has not had any nausea or vomiting. There is no prior history of ulcer disease. PAST MEDICAL HISTORY: Notable for coronary artery disease with an LAD stent. She has a permanent pacemaker, hyperlipidemia, high blood pressure, chronic obstructive pulmonary disease due to cigarette smoking. She also has psoriasis and has been on Remicade as well as methotrexate. PAST SURGICAL HISTORY: Cholecystectomy, pacemaker insertion, hysterectomy and she also had biopsy of a benign left breast lesion. FAMILY HISTORY: Niece has Crohn's disease. No family history of colon cancer. SOCIAL HISTORY: , 3 children, alive and well. She quit smoking in 2013 at time of heart attack. She has never consumed much alcohol. [address] [address] CONSULTATION Name: JIMENA MOROCHO Room #: 454-P [facility] IN ..#: [id number] Admission: 09/13/19 Attend Phys: Miguelangel Kinney MD Discharge: 09/22/19 Date of : 46 Report #: [id number] MEDICATIONS: Remicade IV every 8 weeks, [place] AR tablets daily, methotrexate 20 mg once weekly, ProAir HFA 2 puffs q. 4 as needed, aspirin 81 mg daily, Symbicort inhaled twice daily, Celexa 20 mg daily, pravastatin 80 mg daily, Singulair 10 mg at bedtime, Restoril 30 mg at bedtime, Girdler 5/325 twice daily as needed for pain, Flonase twice daily, loratadine 1 daily. REVIEW OF SYSTEMS: GENERAL: Generalized weakness, fatigue, fevers, chills and rigors. She believes she has lost a few pounds. HEENT: No change in vision, hearing, or sores in the mouth. She may have cataracts. PULMONARY: Shortness of breath, which has worsened recently. Long-term cigarette smoker, stopped in 2013, no history of tuberculosis, question of recent pneumonia. CARDIOVASCULAR: Coronary artery disease and permanent pacemaker, now with bacterial endocarditis. GASTROINTESTINAL: As noted above, recent reflux. Bowel habits have been regular. She has not had rectal bleeding. She did have a colonoscopy 20 years ago. She does not recall why it was done or specific details. GENITOURINARY: Without dysuria, pyuria, kidney stones, kidney tract infections. GYNECOLOGIC: Previous hysterectomy, benign breast lesion. MUSCULOSKELETAL: Degenerative joint disease, mostly in her back for which she takes hydrocodone at times. SKIN: Notable for psoriasis which have been managed with Remicade and methotrexate. ENDOCRINE: No known diabetes or thyroid problems. HEMATOLOGIC: No bleeding, bruising, or malignancy. PHYSICAL EXAMINATION: GENERAL: The patient is a well-developed, well-nourished woman who is awake, alert and oriented, no acute distress. VITAL SIGNS: Blood pressure 146/51, pulse 77, temperature 98.0. HEENT: Anicteric. Pupils equal, round. Oropharynx clear. NECK: Supple. CHEST: Clear. HEART: Regular rate and rhythm, normal S1, S2. ABDOMEN: Normal bowel sounds, soft, nontender, without hepatosplenomegaly or masses. RECTAL: Not done. EXTREMITIES: Without cyanosis, clubbing, or edema. NEUROLOGICAL: Oriented to person, place, and time. Moves all 4 extremities well. SKIN: Without rashes. However, I did not have her disrobe for skin exam. ASSESSMENT: [facility] [address] [place] [address] CONSULTATION Name: JIMENA MOROCHO Room #: 454-P [facility] IN ..#: [id number] Admission: 09/13/19 Attend Phys: Miguelangel Kinney MD Discharge: 09/22/19 Date of : 46 Report #: [id number] 1. Enterococcus faecalis bacterial endocarditis, uncertain origin. 2. Coronary artery disease with a stent. 3. Permanent pacemaker. 4. Chronic obstructive pulmonary disease. 5. Psoriasis, on Remicade and methotrexate. 6. Family history of Crohn's disease, niece. 7. Recent onset of nighttime regurgitation. COMMENT: In addition to above, she has never had any colonic problem such as diverticulitis, diarrhea or change in bowel habits. PLAN: 1. Colonoscopy to evaluate for potential source of portal of entry for Enterococcal bacteremia. 2. Upper endoscopy due to recent onset of increased regurgitation, which is a new problem. 3. Continue antibiotics. 4. Discussed with the patient she should withhold her Remicade and methotrexate until her current infection is under control and to discuss further with her worship pastor about her recent infection as well as other options for management of her psoriasis. <ELECTRONICALLY SIGNED> By: Hilario Sullivan MD 09/30/19 1013 1143 1313 Hilario Sullivan MD /nt
[2019-10-09] MEDS ORDERED: DIFLUCAN150 M1 PO (08:37)
== END 2019-09-22 19:40 | disposition home health service (06) | DRG 871 ==
LOC: 2N 21:26 → 4W 09-20 04:00
PROVIDERS: Hospitalist; Internal Medicine; Internal Medicine Cardiovascular Disease; Nurse Practitioner Acute Care; Nurse Practitioner Adult Health; Specialist; ADMIT Internal Medicine
PROC: B24BZZ4 Ultrasonography of Heart with Aorta, Transesophageal (ICD-10-PCS; 2019-09-15)
PROC: 0DBN8ZX Excision of Sigmoid Colon, Via Natural or Artificial Opening Endoscopic, Diagnostic (ICD-10-PCS; 2019-09-19)
PROC: 0DB58ZX Excision of Esophagus, Via Natural or Artificial Opening Endoscopic, Diagnostic (ICD-10-PCS; 2019-09-19)
PROC: 0W3P8ZZ Control Bleeding in Gastrointestinal Tract, Via Natural or Artificial Opening Endoscopic (ICD-10-PCS; principal; 2019-09-22)
PROC: 02HV33Z Insertion of Infusion Device into Superior Vena Cava, Percutaneous Approach (ICD-10-PCS; principal; 2019-09-22)
DX: A41.9 Sepsis, unspecified organism (principal); J96.01 Acute respiratory failure with hypoxia; I50.33 Acute on chronic diastolic (congestive) heart failure; B37.0 Candidal stomatitis; K22.10 Ulcer of esophagus without bleeding; D84.9 Immunodeficiency, unspecified; K92.2 Gastrointestinal hemorrhage, unspecified; D62 Acute posthemorrhagic anemia; I25.10 Atherosclerotic heart disease of native coronary artery without angina pectoris; L40.9 Psoriasis, unspecified; E78.00 Pure hypercholesterolemia, unspecified; B95.2 Enterococcus as the cause of diseases classified elsewhere; F41.9 Anxiety disorder, unspecified; E78.5 Hyperlipidemia, unspecified; R79.89 Other specified abnormal findings of blood chemistry; I05.9 Rheumatic mitral valve disease, unspecified; I48.0 Paroxysmal atrial fibrillation; K63.5 Polyp of colon; K64.8 Other hemorrhoids; K21.9 Gastro-esophageal reflux disease without esophagitis; J43.9 Emphysema, unspecified; E87.6 Hypokalemia; I25.2 Old myocardial infarction; Z95.5 Presence of coronary angioplasty implant and graft; Z95.0 Presence of cardiac pacemaker; Z88.8 Allergy status to other drugs, medicaments and biological substances; Z79.2 Long term (current) use of antibiotics; Z79.01 Long term (current) use of anticoagulants; Z87.891 Personal history of nicotine dependence; Z90.49 Acquired absence of other specified parts of digestive tract; Z79.82 Long term (current) use of aspirin; Z90.710 Acquired absence of both cervix and uterus; Z79.891 Long term (current) use of opiate analgesic; Z79.899 Other long term (current) drug therapy; Z82.49 Family history of ischemic heart disease and other diseases of the circulatory system; Z83.79 Family history of other diseases of the digestive system
CPT/HCPCS: 10040; 10047; 10081; 27000; 62110; 62900; 70005

== ENCOUNTER 2019-10-03 16:02 | Inpatient (IN) | payer OTHER, BC ==
[~2019-10-03] VITALS: Ht 157.5 cm; Wt 65.3 kg
[~2019-10-03 16:02] MED LIST changes: +AMPICILLIN SODIU2 GM IV; +CELEXA20 MG PO; +CLARITIN10 M3 PO; +FLONASE 0.05%50 MCG NASAL; +FOLBEE TABLET1 EACH PO; +FOLBIC TABLET1 TAB PO; +NORCO 5-325 TA1 EAC1 PO; +PRAVASTATIN SOD80 MG PO; +RESTORIL30 MG PO; +ROCEPHIN 11 GM/1001 IV; +SINGULAIR 10 MG10 MG PO; +SYMBICORT160 MCG/4. INH
[2019-10-03 16:03] VITALS: BP 126/40
[2019-10-03 18:26] LABS: HEMATOCRIT 29.8 % (37.0-47.0); MCH 33.5 pg (26.0-34.0); MCHC 33.6 g/dL (28.0-37.0); MCV 99.5 fL (80.0-100.0); PLATELET COUNT 107 thou/uL (150-400); RBC 2.99 mil/uL (4.20-5.00); RDW 15.2 % (10.5-14.5); WBC 4.1 thou/uL (4.0-11.0)
[2019-10-03 18:30] LABS: CALCIUM 8.7 mg/dL (8.5-10.1); CREATININE 0.7 mg/dL (0.6-1.0); POTASSIUM 3.4 mmol/L (3.5-5.1)
[2019-10-03 18:35] LABS: ALBUMIN 2.9 g/dL (3.4-5.0); TOTAL BILIRUBIN 0.6 mg/dL (<0.1-1.0); TOTAL PROTEIN 6.4 g/dL (6.4-8.2)
[2019-10-03 18:56] LABS: ABSOLUTE NEUTROPHILS 1.9 thou/uL (1.4-8.2)
[2019-10-03 19:31] VITALS: BP 121/52
[2019-10-03 19:34] LABS: URINE BILIRUBIN NEGATIVE (Negative); URINE BLOOD TRACE (Negative); URINE CLARITY CLEAR; URINE COLOR YELLOW; URINE GLUCOSE-RANDOM* NEGATIVE (Negative); URINE KETONES NEGATIVE (Negative); URINE LEUKOCYTES-REFLEX NEGATIVE (Negative); URINE NITRITE-REFLEX NEGATIVE (Negative); URINE PROTEIN (DIPSTICK) NEGATIVE (Negative); URINE UROBILINOGEN 0.2 E.U./dl (0.2-1.0)
[2019-10-03 20:08] VITALS: BP 132/60
[2019-10-03 21:19] VITALS: BP 107/66
[2019-10-04 00:01] VITALS: BP 101/75
[2019-10-04 03:44] VITALS: BP 130/68
[2019-10-04 06:03] LABS: HEMATOCRIT 27.3 % (37.0-47.0); HEMOGLOBIN 9.3 gm/dL (12.0-15.0); MCH 33.7 pg (26.0-34.0); MCV 99.2 fL (80.0-100.0); RBC 2.75 mil/uL (4.20-5.00); WBC 3.1 thou/uL (4.0-11.0)
[2019-10-04 06:25] LABS: ANION GAP 8 mmol/L (7-16); BUN 4 mg/dL (7-18); CALCIUM 8.5 mg/dL (8.5-10.1); CHLORIDE 105 mmol/L (98-107); CO2 26 mmol/L (21-32); CREATININE 0.7 mg/dL (0.6-1.0); GLUCOSE 82 mg/dL (74-106); MAGNESIUM 1.7 mg/dL (1.8-2.4); POTASSIUM 3.2 mmol/L (3.5-5.1); SODIUM 139 mmol/L (136-145); TROPONIN-I <0.06 ng/mL (<0.06)
[2019-10-04 06:43] LABS: FOLIC ACID 14.9 ng/mL (8.6-58.9)
--- NOTE | 2019-10-04 06:49 | NUR ---
THIS PATIENT WAS A READMITTE. RECIEVED THIS PATIENT APPROX 2029. PATIENT HAS A LOW GRAE TEMP, APPROX 99.8. PATIENT WAS JUST DISCHARGED ELEVEN DAYS AGO. ORDERS WERE CARRED OUT. PATIENT WAS ASSESSED AND PATIENTS DAUGHTER IS AT THE BEDSIDE. HOURLY ROUNDS WERE DONE. THE BED IS IN A LOW AND LOCK POSITION.
[2019-10-04 08:00] VITALS: BP 127/88
[2019-10-04 08:37] LABS: ABSOLUTE NEUTROPHILS 1.4 thou/uL (1.4-8.2); ANISOCYTOSIS 2+; PLATELET COUNT 95 thou/uL (150-400); PLATELET ESTIMATE SLIGHTLY DECREASED
--- NOTE | 2019-10-04 09:39 | NUR ---
CM ASSESSMENT: CASE OPENED FOR DC PLANNING. CLINICAL INFO REVIEWED. PT ADMITS WITH [facility] AND HAS HX OF ENDOCARDITIS ON HOME IV ABX THROUGH [facility] RN FROM [facility]. MET WITH PT AND HER DTR. PT IS INDEPENDENT WITH ADLS, HAS PICC. NO DME USE. STAYING WITH DTR IN [place], [place]. SINCE LAST ADMIT AND PLANS TO RETURN TO DTR'S HOME AT DC. NOTIFIED [facility] OF ADMISSION.
--- NOTE | 2019-10-04 11:02 | NUR ---
ORDER RECEIVED FOR PICC EXCHANGE. DISCUSSED WITH KAJAL ISRAEL , PATIENT'S NURSE CONCERNING TIMING OF PICC PLACEMENT. NURSE TO NOTIFY DR. Rupal LINARES OF NEW ORDER FOR PICC EXCHANGE AND CLARIFY ORDER. INFECTIOUS DISEASE PHYSICIAN , DR. LINARES TO GIVE US EXACT ORDERS RELATED TO PICC PLACEMENT.
--- NOTE | 2019-10-04 11:39 | NUR ---
RD consult recevied for malnutrition indicated. Recent discharge 09/22. Readmitted with fever, endocarditis. Pt reports eating more than 50%, no significant wt changes. Did not want to be on heart healthy diet and was pleased to know her diet had been changed earlier to regular. Orders own meals. RD will defer any malnutrition dx to physician. Low nutrition risk
[2019-10-04 12:00] VITALS: BP 119/52
[2019-10-04 16:37] VITALS: BP 100/50
--- NOTE | 2019-10-04 17:08 | NUR ---
ASSUMED CARE OF PT AT APPROX 0700. PT IS LAERT AND ORIENTED X4. MONITORED ON TELE AND ABLE TO MAINTAIN 02 SAT >90 ON 02 NC. DENIES PAIN AND SOA. PT CLEARED TO BE UP AD FEMI IN ROOM. DAUGHTER AT BEDSIDE. BOTH HAVE BEEN UPDATED ON POC. ASSESSMENT CHARTED. PT ANXIOUS FOR DC BUT LOOKING AT THURS-FRI RIGHT NOW. PT DENIES ANY CONCERNS OT FURTHER QUESTIONS AT THIS TIME. WILL CONT. TO MONITOR.
[2019-10-04 20:17] VITALS: BP 124/52
[2019-10-05 00:11] VITALS: BP 108/45
[2019-10-05 03:44] VITALS: BP 101/50
--- NOTE | 2019-10-05 05:36 | NUR ---
PT RESTING QUIETLY IN ROOM TURNS SELF IN BED, FAMILY AT BEDSIDE OFFERING SUPPORT, VSS, TYLENOL GIVEN FOR FEVER OF 99.8 EARLY IN THE SHIFT, NO C/O PAIN,FLUIDS CON'T TO INFUSE IN L HAND, BENADRYL GIVEN FOR ITCHING AND REDNESS IN ARMS AND CHEST, WILL CON'T TO MONITOR PER PPOC.
[2019-10-05 07:30] VITALS: BP 116/57
[2019-10-05 08:35] LABS: ABSOLUTE NEUTROPHILS 1.4 thou/uL (1.4-8.2); BASOPHILS 1.5 % (0.0-2.0); EOSINOPHILS 5.2 % (0.0-3.0); HEMATOCRIT 27.3 % (37.0-47.0); HEMOGLOBIN 9.5 gm/dL (12.0-15.0); LYMPHOCYTES 42.8 % (24.0-44.0); MCHC 34.7 g/dL (28.0-37.0); MCV 98.1 fL (80.0-100.0); MONOCYTES 9.4 % (1.0-8.0); PLATELET COUNT 101 thou/uL (150-400); POLYS 41.1 % (36.0-66.0); RBC 2.79 mil/uL (4.20-5.00); RDW 14.7 % (10.5-14.5); WBC 3.3 thou/uL (4.0-11.0)
[2019-10-05 11:00] VITALS: BP 113/52
--- NOTE | 2019-10-05 14:30 | NUR ---
ASSUMED CARE AT 0700, SHIFT ASSESMENT DONE, MEDS GIVEN, VSS. DENIES PAIN, NAUSEA, VOMITING. UP WITH STANDBY ASSIST, DENIES PAIN. RECEVIED IV LASIX. DID REPORT SOME ITCHING AFTER ANTIBIOTICS ADMINISTRATION, PRN BENADRYL GIVEN. OFF OF TELEMETRY NOW. WILL CONTINUE TO ASSES AND ASSIST WITH ADLs NEEDED.
[2019-10-05 19:24] VITALS: BP 100/41
--- NOTE | 2019-10-06 02:03 | NUR ---
ASSUMED CARE OF PT AT 1900HRS. PT IS AOX4 AND LETS NEEDS BE KNOWN. FALL PRECAUTION IN PLACE. FAMILY IS AT BEDSIDE. ABX TREATMENT CONTINUED. PT DENIES NAUSEA OR PAIN. PT WAS ABLE TO GET COMFORTABLE AND SLEEP PART OF THE SHIFT. VSS AND NO S/S OF ACUTE DISTRESS. WILL CONTINUE TO MONITOR.
[2019-10-06 08:04] VITALS: BP 133/55
--- NOTE | 2019-10-06 08:26 | EKG ---
[place] [address] [facility] [place] [address] ELECTROCARDIOGRAM REPORT Name: JIMENA MOROCHO Room #: 451-P ADM IN M.R.#: [id number] Admission: 10/03/19 Attend Phys: Terence Schmidt Discharge: Date of : 46 Report #: [id number] THIS REPORT FOR: //name// [facility] Test Date: 2019-10-05 Test Time: 07:46:20 Pat Name: JIMENA MOROCHO Department: Room: [facility] Gender: F Manager Terminal: CHARITY : 1950 Requested By: Michel Kim Order Number: [id number] MD: Lul Paula Measurements Intervals [place] Rate: 80 P: 81 CO: 141 QRS: 38 QRSD: 83 T: 23 QT: 377 QTc: 435 Interpretive Statements Sinus rhythm Atrial premature complexes Compared to ECG 11/02/2013 17:57:33 Atrial premature complex(es) now present deep anterolateral T wave abnormality is no longer present Electronically Signed On 10-06-2019 8:25:13 GAS SINGER by Lul Paula [email or web address] <ELECTRONICALLY SIGNED> By: Lul Paula MD, [facility] 10/06/1925 Lul Paula MD, [facility] /EPI
[2019-10-06 13:37] VITALS: BP 143/60
--- NOTE | 2019-10-06 18:31 | NUR ---
Assumed patient care at 0715. Vital signs have been stable. She denies pain. Patient has had no adverse reactions to her IV Antibiotics. She has been pleasant, is alert and oriented x's 4. Patient's daughter has been at bedside throughout this shift. Daughter has walked with patient around the unit three times today. Left hand IV is Saline Locked. She is on room air. Will continue to monitor.
[2019-10-06 19:06] VITALS: BP 114/48
[2019-10-07 08:04] VITALS: BP 138/63
[2019-10-07 12:34] VITALS: BP 138/72
--- NOTE | 2019-10-07 14:54 | NUR ---
ID SAW PT AND INDICATED THAT SHE IS TO HAVE NEW PICC PLACE AND DC HOME ON VANC AND STREPTOMYCIN BOTH Q12. CM NOTIFIED [facility] WHO PT HAD BEEN ON SERVICE WITH ASSISTANT PROPERTY MANAGER. PT IS TO GET FIRST DOSE OF THE STREPTOMYCIN TOMORROW AND TO LEAVE FOLLOWING THAT. FINAL ORDERS WILL NEED TO BE FAXED TO THE NUMBERS LISTED BELOW. PT WILL BE DISCHARGING TO HER [facility] AT [address] [place] [address] [address] [place], [place] [address]. BOTH COMPANIES HAVE THE CORRECT ADDRESS. [facility] P: F: [facility] P: F: .
--- NOTE | 2019-10-07 15:14 | NUR ---
PATIENT STATES SHE IS CURRENT WITH [facility] PER UNIT SW. CALL PLACED TO [facility], SPOKE WITH MANUELA ROY STATES PATIENT IS CURRENT WITH [facility]. [facility] TO RESUME PATIENTS HH SERVICES ONCE RESUMPTION ORDERS RECEIVED. FOLLOWING.
--- NOTE | 2019-10-07 16:02 | NUR ---
VAT CONSULTED FOR A PICC FOR HOME ABX. PT HAD A PICC REMOVED THIS WEEK THAT WAS IN THE RT ARM AND HAS A PACER IN THE LT CHEST. PT STATED THE MD THINKS PACER WIRES MAY BE INFECTED. ATTEMPTED X2 TO PASS PICC IN RUABASILIC AND RUABRACHIAL AND PICC COILED MULTIPLE TIMES. CALLED IR TO HAVE A PICC OR TUNNELED LINE PLACED TODAY.
--- NOTE | 2019-10-07 17:17 | NUR ---
Assumed patient care at 0715. Vital signs have been stable; she denies pain. Daughter is at bedside. Patient is up ad-matt. Patient had Picc Line Placement late this afternoon. Patient has a double lumen Picc Line in upper right arm. Infusion Nurse here, educated both daughter and patient per in home Infusions. patient to Discharge tomorrow. Will continue to monitor.
[2019-10-07 19:38] VITALS: BP 110/52
[2019-10-07 20:29] VITALS: BP 183/72
[2019-10-08 07:56] VITALS: BP 139/54
--- NOTE | 2019-10-08 08:54 | NUR ---
pt slept well last night vss, iv abt's infusing as ordered. up with sba voiding qs rash is still present but is slowly dissipating pt denies itching lip face or throat swelling. plan to dc home today after test dose of streptomycin given.
[2019-10-08 09:42] LABS: HEMATOCRIT 27.9 % (37.0-47.0); HEMOGLOBIN 9.7 gm/dL (12.0-15.0); MCH 33.9 pg (26.0-34.0); MCHC 34.8 g/dL (28.0-37.0); MCV 97.3 fL (80.0-100.0); RBC 2.87 mil/uL (4.20-5.00); RDW 15.1 % (10.5-14.5); WBC 4.8 thou/uL (4.0-11.0)
[2019-10-08 14:56] VITALS: BP 113/45
[2019-10-08 16:35] VITALS: BP 113/45
--- NOTE | 2019-10-08 18:56 | NUR ---
Assumed patient care at 0715. Vital signs stable. New IV Infusion medication started at 1018 (Streptomycin). No adverse reactions with this medication. Infusion Clinic notified, as patient will continue home infusions in double-lumen Picc Line. Information faxed to [facility]. Confirmation received; Nursing Report given to LINDY Cortez. Patient verbalized an understanding to all Discharge Instructions, signed paperwork. She left with all belongings and her daughter at 1650.
[2019-10-09] MEDS ORDERED: DIFLUCAN150 M1 PO (08:37)
[2019-10-10 10:18] VITALS: BP 113/45
== END 2019-10-08 17:50 | disposition home health service (06) | DRG 289 ==
LOC: ER 16:02 → 2N 19:25 → EROBS 19:25 → 4W 19:25 → 2N 20:11 → 4W 10-05 19:00
PROVIDERS: Emergency Medicine; Nurse Practitioner; Specialist; ADMIT Hospitalist
PROC: B5161ZA Fluoroscopy of Right Subclavian Vein using Low Osmolar Contrast, Guidance (ICD-10-PCS; principal; 2019-10-07)
PROC: B546ZZA Ultrasonography of Right Subclavian Vein, Guidance (ICD-10-PCS; principal; 2019-10-07)
PROC: 05H533Z Insertion of Infusion Device into Right Subclavian Vein, Percutaneous Approach (ICD-10-PCS; principal; 2019-10-07)
DX: I33.0 Acute and subacute infective endocarditis (principal); E46 Unspecified protein-calorie malnutrition; E78.5 Hyperlipidemia, unspecified; J44.9 Chronic obstructive pulmonary disease, unspecified; I10 Essential (primary) hypertension; L40.9 Psoriasis, unspecified; I25.10 Atherosclerotic heart disease of native coronary artery without angina pectoris; D89.9 Disorder involving the immune mechanism, unspecified; E87.6 Hypokalemia; D69.6 Thrombocytopenia, unspecified; I48.0 Paroxysmal atrial fibrillation; E83.42 Hypomagnesemia; G47.00 Insomnia, unspecified; F32.9 Major depressive disorder, single episode, unspecified; I25.2 Old myocardial infarction; Z95.0 Presence of cardiac pacemaker; Z79.2 Long term (current) use of antibiotics; Z79.82 Long term (current) use of aspirin; Z90.710 Acquired absence of both cervix and uterus; Z90.49 Acquired absence of other specified parts of digestive tract; Z79.891 Long term (current) use of opiate analgesic; Z79.899 Other long term (current) drug therapy; Z88.8 Allergy status to other drugs, medicaments and biological substances; Z68.26 Body mass index [BMI] 26.0-26.9, adult; Z95.5 Presence of coronary angioplasty implant and graft; Z82.49 Family history of ischemic heart disease and other diseases of the circulatory system; Z87.891 Personal history of nicotine dependence; Z79.01 Long term (current) use of anticoagulants
CPT/HCPCS: 10047; 10081; 27000

== ENCOUNTER 2019-10-16 22:55 | Emergency (ER) | payer OTHER, BC ==
[~2019-10-16] VITALS: Ht 154.9 cm; Wt 60.3 kg
[~2019-10-16 22:55] MED LIST changes: +DIFLUCAN150 M1 PO
[2019-10-17 01:45] VITALS: BP 142/80
[2019-10-18] MEDS ORDERED: VANCO 1 GR1 GM/250 M IVPB (13:29)
[2019-10-18] MEDS ORDERED: LIPITOR 40 MG T40 M1 PO (21:55)
== END 2019-10-17 01:45 ==
LOC: ER 22:55
DX: T82.838A Hemorrhage due to vascular prosthetic devices, implants and grafts, initial encounter (principal); I10 Essential (primary) hypertension; I38 Endocarditis, valve unspecified; E78.5 Hyperlipidemia, unspecified; J44.9 Chronic obstructive pulmonary disease, unspecified; L40.9 Psoriasis, unspecified; Z90.710 Acquired absence of both cervix and uterus; Z90.49 Acquired absence of other specified parts of digestive tract; Z95.0 Presence of cardiac pacemaker; Z88.1 Allergy status to other antibiotic agents; Z88.8 Allergy status to other drugs, medicaments and biological substances

== ENCOUNTER 2019-10-18 12:55 | Inpatient (IN) | payer OTHER, BC ==
[~2019-10-18] VITALS: Ht 154.9 cm; Wt 60.7 kg
--- NOTE | ~2019-10-18 | EKG ---
[facility] [place] [address] [place] [address] ELECTROCARDIOGRAM REPORT Name: JIMENA MOROCHO Room #: [facility].#: [id number] Admission: Attend Phys: Discharge: Date of : 46 Report #: [id number] THIS REPORT FOR: cc: Michel Kim MD, Daniel J. MD Epiphany, Epiphany MD ~ THIS REPORT FOR: //name// [facility] ED Test Date: 2019-10-18 Test Time: 14:06:51 Pat Name: JIMENA MOROCHO Department: Room: Gender: F Mold Dumper: AUREA : 1950 Requested By: Noam Ricci Order Number: [id number] MD: Measurements Intervals [place] Rate: 94 P: 87 MD: 136 QRS: 57 QRSD: 108 T: 38 QT: 362 QTc: 453 Interpretive Statements Sinus rhythm Atrial premature complex Probable left atrial enlargement Borderline T abnormalities, anterior leads Compared to ECG 10/05/2019 07:46:20 T-wave abnormality now present [email or web address] By: 1406 1406 Epiphany EpiphanyMD /EPI
[2019-10-18 12:58] VITALS: BP 128/70
[2019-10-18] MEDS ORDERED: VANCO 1 GR1 GM/250 M IVPB (13:29)
[2019-10-18 13:42] LABS: HEMATOCRIT 38.6 % (37.0-47.0); HEMOGLOBIN 12.8 gm/dL (12.0-15.0); MCH 32.6 pg (26.0-34.0); MCHC 33.1 g/dL (28.0-37.0); MCV 98.4 fL (80.0-100.0); PLATELET COUNT 160 thou/uL (150-400); RBC 3.92 mil/uL (4.20-5.00); RDW 14.6 % (10.5-14.5); WBC 5.7 thou/uL (4.0-11.0)
[2019-10-18 13:47] LABS: ANION GAP 13 mmol/L (7-16); BUN 14 mg/dL (7-18); CALCIUM 8.5 mg/dL (8.5-10.1); CHLORIDE 98 mmol/L (98-107); CO2 27 mmol/L (21-32); GLUCOSE 114 mg/dL (74-106); SODIUM 138 mmol/L (136-145)
[2019-10-18 13:57] LABS: ALBUMIN 3.2 g/dL (3.4-5.0); SGOT 106 U/L (15-37); SGPT 66 U/L (30-65); TOTAL PROTEIN 6.9 g/dL (6.4-8.2); TROPONIN-I <0.06 ng/mL (<0.06)
[2019-10-18 14:29] LABS: ABSOLUTE NEUTROPHILS 4.6 thou/uL (1.4-8.2)
[2019-10-18 14:40] LABS: PLATELET ESTIMATE NORMAL
[2019-10-18 19:10] VITALS: BP 115/51
[2019-10-18] MEDS ORDERED: LIPITOR 40 MG T40 M1 PO (21:55)
[2019-10-19 03:45] VITALS: BP 93/42
--- NOTE | 2019-10-19 05:00 | NUR ---
PT ARRIVED ON UNIT AROUND 193. PT HAD NO C/O PAIN AND STATED N/V WAS BETTER. PT ADMISSION CHARTED. CONSENTS SIGNED. PT C/O CHILLS AFTER VANCOMYCIN GIVEN AND QUESTIONED WHETHER THAT IS WHAT'S CAUSING THE SYMPTOMS. PT HAD MILD FEVER OF 99.4 AND WAS GIVEN PRN TYLENOL. WILL CONTINUE TO MONITOR PT PER PLAN OF CARE.
[2019-10-19 09:44] VITALS: BP 93/40
[2019-10-19 13:00] VITALS: BP 105/43
--- NOTE | 2019-10-19 16:07 | NUR ---
met with patient and dtr. patient resides with spouse in independent home but staying with dtr. She has endocarditis and fevers. She is rec IV antibiotics with [facility] (infusion) [facility] and [facility]. Sp with phys who reports patient with need for post acute care. She has recent admissions to hospital and weak. Met with patient and discussed possible 5N and then can be followed by phys. Therapy evals in process. OT recommend rehab and PT reports patient can dc with care. Sp with dtr and patient to discuss not accepted to acute rehab. Dtr reports the phys have discussed her possible need for sx and they do not have answer yet regarding why she has shakes and chills. patient has medicare post acute list for review.
--- NOTE | 2019-10-19 16:13 | NUR ---
ASSUMED CARE AT 0700, SHIFT ASSESSMENT DONE, MEDS GIVEN, VSS. DENIES PAIN, NAUSEA, VOMITING. UP WITH STANDBY ASSIST. AROUND 12 PM, PT STARTED HAVING CHILLS, COLD, HEADECHE. DR LINARES INFORMED, ORDER RECEIVED FOR BLOOD CULTURE, ANTIBIOTICS, ADMINSITERED. NSR ON TELE, ON 2L PRN FOR COMFORT. IV ONE TIME DOSE OF BENADRYL GIVEN AND TYLENOL GIVEN FOR HEADECHE. PT STARTED FEELING BETTER AFTER THAT. CARDILOGY CONSULT, CHERYL TOMORROW, NPO AFTER MIDNIGHT. WILL CONTINUE TO ASSESS AND ASSIST WITH ADLs NEEDED.
[2019-10-19 17:20] VITALS: BP 120/49
[2019-10-19 19:20] VITALS: BP 139/62
[2019-10-20 04:00] VITALS: BP 135/66
--- NOTE | 2019-10-20 07:41 | NUR ---
PT WAS RESTING IN BED WATCHING TELEVISION. PT HAD NO C/O PAIN, SOA, N/V/D. PT MEDICATION GIVEN PER EMAR. PT IS HAVING PROCEDURE IN MORNING AND NPO OF MIDNIGHT. PT HAD CONCERNS REGARDING PICC LINE ACCESS AND OTHER POSSIBLE PROCEDURES WITH DR JORDAN. ADVISED PT TO ASK QUESTIONS WHEN PHYSICIANS MAKE ROUNDS IN MORNING. PT RESTED THRU NIGHT WITH NO FEVER OR CHILLS. WILL CONTINUE TO MONITOR PT PER PLAN OF CARE.
--- NOTE | 2019-10-20 09:36 | NUR ---
PATIENT SEEN BY DR. SLATER ON 10/19/19 FOR REHAB CONSULT. PATIENT IS TOO HIGH FUNCTIONING FOR ACUTE REHAB STAY/5N. BUFFING WHEEL FORMER MACHINE INFORMED. THANK YOU FOR THIS REFERRAL.
--- NOTE | 2019-10-20 09:38 | 2DMMODE ---
[facility] [place] [address] [address] 2 D/M-MODE ECHOCARDIOGRAM Name: JIMENA MOROCHO Candida Room #: 201-P ADM IN M.R.#: [id number] Admission: 10/18/19 Attend Phys: Jacques Cosby MD Discharge: Date of : 46 Report #: [id number] THIS REPORT FOR: cc: Vince Rangel MD ~ THIS REPORT FOR: //name// APPROVED REPORT Study performed: 10/20/2019 07:27:23 EXAM: Comprehensive 2D, Doppler, and color-flow Echocardiogram Patient Location: [facility] Room #: 201 Status: routine BSA: 1.58 HR: 84 bpm BP: 135/66 mmHg Rhythm: Sinus arrhythmia Other Information Study Quality: Good Indications Follow up Mitral Valve endocarditis. Hx: CAD, PCI, Pacemaker, HTN, HLP, COPD. 2D Dimensions RVDd: 30.37 mm IVSd: 8.83 (7-11mm) LVOT Diam: 20.15 (18-24mm) LVDd: 38.11 mm PWd: 9.00 (7-11mm) Ascending Ao: 27.72 (22-36mm) LVDs: 28.30 (25-40mm) Aortic Root: 26.09 mm Volumes Left Atrial Volume (Systole) Single Plane 4CH: 34.29 mL Single Plane 2CH: 41.47 mL LA ESV Index: 26.00 mL/m2 Aortic Valve AoV Peak Tru.: 1.14 m/s AO Peak Gr.: 5.17 mmHg LVOT Max P.09 mmHg [facility] [address] [place] [address] 2 D/M-MODE ECHOCARDIOGRAM Name: JIMENA MOROCHO Room #: 201-P [facility] IN Matilde#: [id number] Admission: 10/18/19 Attend Phys: Jacques Cosby MD Discharge: Date of : 46 Report #: [id number] LVOT Max V: 0.72 m/s MICHELE Vmax: 2.03 cm2 Mitral Valve E/A Ratio: 1.3 MV Decel. Time: 212.28 ms MV E Max Tru.: 1.05 m/s MV A Tru.: 0.80 m/s MV PHT: 61.56 ms IVRT: 69.20 ms Pulmonary Valve PV Peak Tru.: 0.76 m/s PV Peak Gr.: 2.34 mmHg Pulmonary Vein P Vein S: 0.77 m/s P Vein D: 0.63 m/s P Vein S/D Ratio: 1.22 Tricuspid Valve TR Peak Tru.: 2.86 m/s RAP Estimate: 5.00 mmHg TR Peak Gr.: 33.00 mmHg PA Pressure: 38.00 mmHg Left Ventricle The left ventricle is normal size. There is normal LV segmental wall motion. There is normal left ventricular wall thickness. Left ventricular systolic function is normal. LVEF is 55%. Moderate diastolic dysfunction is present (pseudonormal filling). Right Ventricle The right ventricle is normal size. The right ventricular systolic function is normal. Pacemaker lead is present in the right ventricle. Atria The left atrium size is normal. The right atrium size is normal. Aortic Valve The aortic valve is normal in structure. Trace aortic regurgitation. There is no aortic valvular stenosis. Mitral Valve There is an echogenic mass noted on the anterior mitral valve leaflet cannot exclude vegeration. CHERYL SUGGESTED Moderate mitral regurgitation. [facility] [place] [address] 2 D/M-MODE ECHOCARDIOGRAM Name: JIMENA MOROCHO Room #: 201-P ADM IN M.R.#: [id number] Admission: 10/18/19 Attend Phys: Jacques Cosby MD Discharge: Date of : 46 Report #: [id number] Tricuspid Valve The tricuspid valve is normal in structure. Mild tricuspid regurgitation. Estimated PAP is 35-40mmHg. Pulmonic Valve The pulmonary valve is normal in structure. Trace pulmonic regurgitation. Great Vessels The aortic root is normal in size. The ascending aorta is normal in size. IVC is normal in size and collapses >50% with inspiration. Pericardium There is no pericardial effusion. <Conclusion> The left ventricle is normal size. LVEF is 55%. The aortic valve is normal in structure. Trace aortic regurgitation. There is an echogenic mass noted on the anterior mitral valve leaflet cannot exclude vegeration. CHERYL SUGGESTED Moderate mitral regurgitation. The tricuspid valve is normal in structure. Mild tricuspid regurgitation. Estimated PAP is 35-40mmHg. The pulmonary valve is normal in structure. Trace pulmonic regurgitation. There is no pericardial effusion. <ELECTRONICALLY SIGNED> By: Vince Rangel MD 10/20/1939 6 6 Vince Rangel MD /INF
[2019-10-20 11:30] VITALS: BP 97/57
--- NOTE | 2019-10-20 11:32 | TEE ---
[address] [address] TRANSESOPHAGEAL ECHOCARDIOGRAM Name: JIMENA MOROCHO Room #: 201-P ADM IN M.R.#: [id number] Admission: 10/18/19 Attend Phys: Jacques Cosby MD Discharge: Date of : 46 Report #: [id number] THIS REPORT FOR: cc: Lul Paula MD [facility] ~ THIS REPORT FOR: //name// APPROVED REPORT Study performed: 10/20/2019 10:09:57 EXAM: Comprehensive 2D, Doppler, and color-flow Echocardiogram Patient Location: [facility] Room #: 201 Status: routine BSA: 1.59 HR: 96 bpm BP: 111/63 mmHg Rhythm: NSR Other Information Study Quality: Good Indications Endocarditis Procedure After obtaining informed consent, patient underwent transesophageal echo in the [employer]. Type of Sedation : Conscious Sedation Sedation was administered by Lesly Sommer RN. Sedation was achieved intravenously with: Versed (3) Fentanyl (100) Transesophageal probe was inserted and advanced into esophagus without difficulty by Lul Paula MD. The CHERYL was performed without complications. Throughout the procedure, the blood pressure, pulse oximetry, cardiac rhythm, and rate were monitored. The patient tolerated the procedure without adverse effects. Recovery from conscious sedation was uneventful and vital signs were stable. [address] [address] TRANSESOPHAGEAL ECHOCARDIOGRAM Name: JIMENA MOROCHO Room #: 201-P ADM IN M.R.#: [id number] Admission: 10/18/19 Attend Phys: Jacques Cosby MD Discharge: Date of : 46 Report #: [id number] Left Ventricle The left ventricle is normal size. There is normal LV segmental wall motion. There is normal left ventricular wall thickness. Left ventricular systolic function is normal. LVEF is 55-60%. Right Ventricle The right ventricle is normal size. The right ventricular systolic function is normal. Atria The left atrium size is normal. No thrombus is visualized in the left atrium or appendage. The right atrium size is normal. Aortic Valve The aortic valve is normal in structure. Trace aortic regurgitation. There is no aortic valvular stenosis. Mitral Valve Small echogenic mass noted on the anterior leaflet suggestive of vegetation. This appears less mobile and somewhat smaller than what was seen on a CHERYL dated Sep 16, 2019. Moderate mitral regurgitation. Tricuspid Valve The tricuspid valve is normal in structure. Mild tricuspid regurgitation. Pulmonic Valve The pulmonary valve is normal in structure. There is no pulmonic valvular regurgitation. Great Vessels The aortic root is normal in size. IVC is normal in size and collapses >50% with inspiration. Pericardium There is no pericardial effusion. Critical Notification Critical Value: Yes <Conclusion> Left ventricular systolic function is normal. There is normal LV segmental wall motion. LVEF is 55-60%. No thrombus is visualized in the left atrium or appendage. [facility] [address] [place] [address] TRANSESOPHAGEAL ECHOCARDIOGRAM Name: JIMENA MOROCHO Room #: 201-P ADM IN M.R.#: [id number] Admission: 10/18/19 Attend Phys: Jacques Cosby MD Discharge: Date of : 46 Report #: [id number] Pacing leads seen in the right heart. The aortic valve is normal in structure. Trace aortic regurgitation, no stenosis. Small echogenic mass noted on the anterior leaflet suggestive of vegetation. This appears less mobile and somewhat smaller than what was seen on a CHERYL dated Sep 16, 2019. Moderate mitral regurgitation. Similar to prior assessments. There is no pericardial effusion. <ELECTRONICALLY SIGNED> By: Lul Paula MD, FACC 10/20/19 1131 113 113 Lul Paula MD, FACC /INF
[2019-10-20 14:21] LABS: ABSOLUTE NEUTROPHILS 3.4 thou/uL (1.4-8.2); BASOPHILS 1.3 % (0.0-2.0); HEMATOCRIT 32.3 % (37.0-47.0); LYMPHOCYTES 17.7 % (24.0-44.0); MCH 32.4 pg (26.0-34.0); MCHC 33.3 g/dL (28.0-37.0); MCV 97.3 fL (80.0-100.0); MONOCYTES 4.4 % (1.0-8.0); PLATELET COUNT 136 thou/uL (150-400); POLYS 74.6 % (36.0-66.0); RBC 3.32 mil/uL (4.20-5.00); RDW 14.8 % (10.5-14.5); WBC 4.6 thou/uL (4.0-11.0)
[2019-10-20 14:26] LABS: HEMOGLOBIN 10.8 gm/dL (12.0-15.0)
[2019-10-20 14:32] LABS: CALCIUM 8.3 mg/dL (8.5-10.1); CREATININE 0.8 mg/dL (0.6-1.0); MAGNESIUM 1.9 mg/dL (1.8-2.4)
[2019-10-20 14:34] LABS: POTASSIUM 2.9 mmol/L (3.5-5.1)
--- NOTE | 2019-10-20 14:41 | NUR ---
Pt doing well with PT and too high level for 5N acute rehab eval. Primary issue at this time is source of infection and ongoing plan. [facility] updated. ID following.
[2019-10-20 16:00] VITALS: BP 143/49
--- NOTE | 2019-10-20 16:12 | NUR ---
VASCULAR ACCESS CALLED TO AGAIN ASSESS VITOR PICC, NO BLOOD RETURN ,PT HAD TO HAVE PERIPHERAL LAB DRAW. SPOKE TO DR ROACH REGARDING THIS PT, SHE HAD TO GO TO IR FOR PICC PLACEMENT DUE TO OCCLUSION AND THAT IR PLACED SHORT PICC LINE. DR LINARES WANTED PICC D/C'D, PT VERY UPSET DOES NOT WANT IT DC AND PIV PLACED, WANTS PICC TO BE CATHFLO'D AGAIN TODAY. EXPLAINED THAT DR ROBERTO PT STILL HAVING CHILLS AND PICC SHOULD BE REMOVED BUT WANTS TO TALK TO DR LINARES. ALSO DISCUSSED WHAT A TICC LINE IS, DAUGHTER PRESENT ASKING QUESTIONS.
--- NOTE | 2019-10-20 18:26 | NUR ---
ASSUMED CARE PT SHIFT CHANGE. ASSESSMENTS CHARTED. MEDS GIVEN PER NOV. PT ALERT AND ORIENTED. VSS. DENIES PAIN. O2 SATS WNL ON ROOM AIR. PT UP X1 W/ WALKER TOLERATING WELL. PT HAD ECHO AND CHERYL PROCEDURES TODAY--SEE RESULTS. RIGHT UPPER ARM PICC LINE ASSESSED PER IV TEAM. CATHFLOW USED BY IV TEAM WITH SUCCESSFUL BLOOD DRAW. DAUGHTER AT BEDSIDE THROUGHOUT SHIFT. PT CONCERNED REGARDING RASH. PHYSICIAN NOTIFIED AND AWARE. IV ABX ADMIN ORDERED. PT HAD CRITCIAL LOW POTASSIUM, PHYSICIAN CONTACTED, ORDERS RECEIVED. PT CURRENTLY DENIES NEEDS AT THIS TIME. WILL CONT TO MONITOR AND FOLLOW POC.
[2019-10-20 20:20] VITALS: BP 149/63
[2019-10-21 03:43] LABS: CALCIUM 8.4 mg/dL (8.5-10.1); CREATININE 0.8 mg/dL (0.6-1.0); POTASSIUM 3.8 mmol/L (3.5-5.1)
[2019-10-21 04:44] VITALS: BP 157/69
--- NOTE | 2019-10-21 06:31 | NUR ---
ASSUMED PT CARE AROUND 1930. PT WAS RESTING IN BED AND FRUSTRATED WITH NOT HAVING ANSWERS. PT STATED "I KNOW I'M HAVING AN ALLERGIC REACTION TO THIS ANTIBIOTIC. WHY DON'T THEY" PT VENTED CONCERNS AND THEN WAS OKAY WITH PLAN OF CARE. PT ASSESSMENT CHARTED AND MEDICATIONS GIVEN PER EMAR. DAUGHTER STAYS WITH PT IN ROOM. WILL CONTINUE TO MONITOR PT PER PLAN OF CARES.
[2019-10-21 09:10] VITALS: BP 134/51
[2019-10-21 12:54] VITALS: BP 161/60
--- NOTE | 2019-10-21 15:41 | NUR ---
ASSESSMENT CHARTED. PT ALERT AND ORIENTED. VSS. VERY FRUSTRATED THIS AM STATING THAT SHE DOES NOT FEEL LIKE SHE IS GETTING BETTER. DAUGHTER AT THE BEDSIDE. SEEN BY DR. MCKINLEY AND VIJAY MATOS. DR. LINARES AND DR. MCKINLEY ANSWERED PT'S CONCERNS. NEW ORDERS NOTED. PICC LINE REMOVED. WILL CONTINUE TO MONITOR.
[2019-10-21 17:53] VITALS: BP 133/58
[2019-10-21 19:33] VITALS: BP 134/67
[2019-10-22 00:38] VITALS: BP 155/77
[2019-10-22 05:06] VITALS: BP 143/68
--- NOTE | 2019-10-22 05:51 | NUR ---
[facility] 190. PATIENT/VITALS STABLE. DENIES ANY PAIN. TOLERTES ACTIVITY WWELL. UP STB ASSIST TO BATHROOM. NO DISTRESS NOTED. SR ON MONITOR. ADEQUTE REST NOTED. ASSESSMENT CHARTD. PROGRESSING WELL [facility] POC. PLAN IS TO CONITNUE WITH ANTIBIOTICS AN DPOSSIBLE DISCHARGE IN A FEW DAYS. WILL CONITNUE TO MONITOR AND FOLLOW WI POC
[2019-10-22 07:15] VITALS: BP 132/63
--- NOTE | 2019-10-22 15:40 | NUR ---
ASSESSMENT CHARTED. PT ALERT AND ORIENTED. VSS. DENIED HAVING PAIN OR DISCOMFORT. REPORT FEELING MUCH BETTER TODAY WITH ITCHING. IV ABX GIVEN. NO CONCERNS AT THIS TIME. WILL CONTINUE TO MONITOR.
[2019-10-22 16:02] VITALS: BP 128/66
[2019-10-22 21:30] VITALS: BP 123/57
--- NOTE | 2019-10-23 04:51 | NUR ---
[facility]ME CARE 1900. PT/VITALS STABLE. DEIES ANY PAIN. TOLERATES ACTIVITY WELL. UP STB ASSIST WITH A WALKER. SR ON MONITOR. A/O WITH NO DISTRESS NOTED. ADEQUATE REST NOTED. ASSESSMENT CHARTED. PROGRESSING WELL WITH POC. PLAN IS TO CONITNUE WITH ABX TREATENT. WILL CONTINUE TO MONITOR AND FOLLOW WITH POC
[2019-10-23 05:00] VITALS: BP 154/57
[2019-10-23 07:37] VITALS: BP 149/67
[2019-10-23 16:00] VITALS: BP 145/74
[2019-10-23 19:34] VITALS: BP 130/55
[2019-10-24 04:20] VITALS: BP 157/90
--- NOTE | 2019-10-24 04:30 | NUR ---
PT RESTING QUIETLY IN ROOM WITH DAUGHTER AT BEDSIDE, LEVON DEL REAL CALLED TO DR ORDERS CHANGED ON VANCOMYCIN DOSAGE, NO C/O PAIN, PT HOPES TO GO HOME SOON, WILL CON'T TO MONITOR PER PPOC.
[2019-10-24 08:00] VITALS: BP 142/46
[2019-10-24 11:30] VITALS: BP 141/60
[2019-10-24] MEDS ORDERED: PREDNISONE 10 M10 MG PO (15:22)
[2019-10-24] MEDS ORDERED: CALAMINE LOTIO177 M1 TOP (15:22)
[2019-10-24] MEDS ORDERED: PROTONIX 20 MG20 M1 PO (15:22)
[2019-10-24] MEDS ORDERED: BANOPHEN25 M1 PO (15:22)
[2019-10-24] MEDS ORDERED: ACETAMINOPHEN325 M1 PO (15:22)
--- NOTE | 2019-10-24 15:36 | NUR ---
ASSUMED CARE 0700. A/OX4, DENIES PAIN, DENIES SOB, NO RIGGERS REPORTED. SA ON TELE. IV REMOVED, PER DR LINARES NO NEEDS FOR ANTIBIOTIC, UP AB FEMI AND WALKING HALLWAY. DC TODAY WITH DAUGHTER.
[2019-10-24 15:47] VITALS: BP 141/60
--- NOTE | 2019-10-24 16:39 | NUR ---
PT DISCHARGING TODAY TO HOME WITH [facility] FAXED DC ORDERS/SUMMARY SPOKE WITH INTAKE THEY RECEIVED DC ORDERS AND WILL NOTIFY PT TIME OF VISITS.
--- NOTE | 2019-10-26 15:40 | HC ---
[facility] [address] [place] [address] CONSULTATION Name: JIMENA MOROCHO Room #: 201-P [facility] IN M.R.#: [id number] Admission: 10/18/19 Attend Phys: Jacques Cosby MD Discharge: 10/24/19 Date of : 46 Report #: [id number] THIS REPORT FOR: cc: Mihai Lambert MD ~ THIS REPORT FOR: //name// CC: Michel Cosby DATE OF SERVICE: 10/19/2019 HISTORY OF PRESENT ILLNESS: The patient is a 69-year-old white female with subacute bacterial endocarditis, has been previously hospitalized with mental status changes, fevers, chills, night sweats. She was originally diagnosed in September of this year. Discharged on IV antibiotics, 09/22/2019. She ended up being readmitted with recurrent fevers, chills and ended up being discharged on 10/08/2019. She apparently developed the rash. She was switched over to vancomycin. Then was noted to develop a secondary rash either allergic reaction versus expected medication reaction. Prednisone and Claritin are added. She has had problems with her right upper extremity PICC line leaking. She was admitted this time with complaints of being weak, frail, lethargic and having intermittent episodes of shaking episodes, which she relates in time to the vancomycin dosing. We are seeing her in rehabilitation medicine consultation. PAST MEDICAL HISTORY: Includes the above noted subacute bacterial endocarditis. She has a history of hysterectomy, cholecystectomy, hyperlipidemia, COPD, psoriasis, coronary artery disease with prior MS and cath. She has had a pacemaker on 11/02/2013, history of hypertension. HABITS: Former smoker, quit greater than a year ago. No history of alcohol abuse. FAMILY HISTORY: Heart disease. Mom and dad both had coronary artery bypass grafting. SOCIAL HISTORY: She lives in a house with her , 4 steps in, although most recently, she has been staying with her daughter as her daughter has been helping with the home IV infusions of the antibiotics. There is a flight of steps up from the garage, but the patient was able to ambulate up the steps without difficulty, premorbidly. She was ambulatory without gait aids. REVIEW OF SYSTEMS: Complains of the shaking episodes involving both upper and lower extremities with complaints of being cold, although nursing notes her temperature is not elevated. She then will be quite fatigued and tired in [facility] [address] [place] [address] CONSULTATION Name: JIMENA MOROCHO Room #: 201-P [facility] IN M.R.#: [id number] Admission: 10/18/19 Attend Phys: Jacques Cosby MD Discharge: 10/24/19 Date of : 46 Report #: [id number]. She denies any current chest pain or shortness of breath or abdominal discomfort. She has some pleuritis of her skin with the noted rash. PHYSICAL EXAMINATION: GENERAL: She is a thin 69-year-old white female who is lying in bed with shaking of her upper and lower extremities. NEUROLOGIC: She is alert. She has all of the covers pulled up over her. VITAL SIGNS: Temperature 97.7, pulse 61, respirations 18, blood pressure is 93/40. She is pleasant, appropriate. HEENT: Facies are symmetric. EXTREMITIES: I did a limited examination on her. I did not do range of motion of her upper extremities as she is holding them close to her body. She appears to have good strength, however, both upper extremities and lower extremities with manual muscle testing. No focal calf swelling. Functionally, she actually did quite well and was seen by physical therapy with functional mobility, independent. She ambulated 250 feet, supervision with an IV pole. She actually has been cleared by physical therapy to be up ad matt pushing the IV pole or without assistive device. Physical therapy has been discharged. ASSESSMENT: A 69-year-old white female with the following problem list: 1. Subacute bacterial endocarditis. 2. Lactic acidosis. 3. Frequent hospital admissions. 4. Psoriasis. 5. Protein-calorie malnutrition. 6. History of permanent pacemaker. 7. History of paroxysmal atrial fibrillation. 8. History of hypertension. 9. Hyperlipidemia. 10. Chronic obstructive pulmonary disease. PLAN: Functionally, the patient does quite well with her ambulatory mobility and is actually too high level to warrant an acute -[facility] inpatient rehabilitation stay. Physical therapy has already discharged her. At this point, we will follow from the periphery, but she is not a candidate for a -[facility] rehabilitation stay. Thank you for asking us to assist in this patient's care. <ELECTRONICALLY SIGNED> By: Mihai Lambert MD 10/26/19 1540 [id number] [id number] Mihai Lambert MD /nt
== END 2019-10-24 16:59 | disposition home health service (06) | DRG 288 ==
LOC: ER 12:55 → 2N 16:03 → EROBS 16:03 → 2N 19:10
PROVIDERS: Emergency Medicine; Specialist; ADMIT Internal Medicine
PROC: B24BZZ4 Ultrasonography of Heart with Aorta, Transesophageal (ICD-10-PCS; principal; 2019-10-20)
PROC: 02PYX3Z Removal of Infusion Device from Great Vessel, External Approach (ICD-10-PCS; 2019-10-22)
DX: I33.0 Acute and subacute infective endocarditis (principal); E43 Unspecified severe protein-calorie malnutrition; E87.2 Acidosis; T82.858A Stenosis of other vascular prosthetic devices, implants and grafts, initial encounter; E46 Unspecified protein-calorie malnutrition; J44.9 Chronic obstructive pulmonary disease, unspecified; E78.5 Hyperlipidemia, unspecified; I10 Essential (primary) hypertension; I25.10 Atherosclerotic heart disease of native coronary artery without angina pectoris; L40.9 Psoriasis, unspecified; I48.0 Paroxysmal atrial fibrillation; B95.2 Enterococcus as the cause of diseases classified elsewhere; R53.81 Other malaise; E78.00 Pure hypercholesterolemia, unspecified; I34.0 Nonrheumatic mitral (valve) insufficiency; L27.0 Generalized skin eruption due to drugs and medicaments taken internally; T50.995A Adverse effect of other drugs, medicaments and biological substances, initial encounter; J31.0 Chronic rhinitis; Y84.8 Other medical procedures as the cause of abnormal reaction of the patient, or of later complication, without mention of misadventure at the time of the procedure; Z79.899 Other long term (current) drug therapy; Z91.041 Radiographic dye allergy status; Z90.710 Acquired absence of both cervix and uterus; Z90.49 Acquired absence of other specified parts of digestive tract; I25.2 Old myocardial infarction; Z95.0 Presence of cardiac pacemaker; Z79.51 Long term (current) use of inhaled steroids; Z79.82 Long term (current) use of aspirin; Z88.1 Allergy status to other antibiotic agents; Z88.8 Allergy status to other drugs, medicaments and biological substances; Z87.891 Personal history of nicotine dependence; Z68.25 Body mass index [BMI] 25.0-25.9, adult; Z95.5 Presence of coronary angioplasty implant and graft; Y92.89 Other specified places as the place of occurrence of the external cause
CPT/HCPCS: 10081; 10194